=== PATIENT | female | born 1985 | race Caucasian/White ===

== ENCOUNTER 2019-12-13 16:16 | Emergency (ER) | payer OTHER, SELFPAY ==
--- NOTE | ~2019-12-13 | XR_ITS ---
XR ribs LT 2V DATE: 12/13/2019 16:50 INDICATION: Fall down 7 stairs. Posterior left rib pain. TECHNIQUE: 3 views COMPARISON: None FINDINGS: No left rib fracture or bone destruction is evident. Normal heart size. Left lung appears c lear. No pleural effusion or pneumothorax. Surgical clips, right upper quadrant, consistent with cholecystectomy. IMPRESSION: No left rib fracture detected Reviewed, dictated and finalized at location A.
--- NOTE | ~2019-12-13 | XR_ITS ---
XR hip LT min 3V w AP pelvis DATE: 12/13/2019 16:49 INDICATION: Fall down 7 stairs. Posterior left hip pain TECHNIQUE: AP pelvis. AP, lateral and crosstable lateral views of left hip COMPARISON: None FINDINGS: No pelvic fracture or bone destruction. The pubic symphysis and sacroiliac joints are intac t. Hip joint spaces are symmetric and well preserved. No fracture, dislocation, avascular necrosis or bone destruction of the left hip is detected. IMPRESSION: Negative Reviewed, dictated and finalized at location A. IMPRESSION: Negative
[2019-12-13 16:18] VITALS: BP 140/93; PULSE 78; RESP 18; TEMP 36.2; O2SAT 100
--- NOTE | 2019-12-13 16:31 | ED.FALL ---
HPI - Fall General Chief Complaint: Fall <Stephen Selby PA-C - Last Filed: 12/13/19 17:06> Stated Complaint: Fall down 7 steps/left leg pain <Stephen Selby PA-C - Last Filed: 12/13/19 17:06> Time Seen by Provider: 12/13/19 16:18 <SINAN Collins Last Filed: 12/13/19 17:06> Source: patient <SINAN Collins Last Filed: 12/13/19 17:06> Mode of arrival: ambulatory <Stephen Selby PA-C - Last Filed: 12/13/19 17:06> Limitations: no limitations <SINAN Collins Last Filed: 12/13/19 17:06> History of Present Illness HPI Narrative: Patient is a 33-year-old female who presents to emergency department for evaluation of left rib and hip pain status post having slipped on a wet surface and landed on the left side just prior to arrival patient is taken ibuprofen with minimal improvement patient denies radicular symptoms paresthesias head injury loss of consciousness or syncope and presents per private vehicle. Pain is worse with activity and movement <Stephen Selby PA-C - Last Filed: 12/13/19 17:06> Related Data Home Medications: Home Medications Medication Instructions Recorded Confirmed famotidine 20 mg tablet 20 mg PO DAILY 08/12/19 metoclopramide HCl 10 mg tablet 10 mg PO TID PRN tablet 08/12/19 <SINAN Collins Last Filed: 12/13/19 17:06> Allergies/Adverse Reactions: Allergies Allergy/AdvReac Type Severity Reaction Status Date / Time latex Allergy Unknown rash Verified 12/13/19 16:20 <SINAN Collins Last Filed: 12/13/19 17:06> Review of Systems Review of Systems: All systems reviewed & are unremarkable except as noted in HPI and below <SINAN Collins Last Filed: 12/13/19 17:06> PMFSH Past Medical History Medical History: Medical History Adult hypothyroidism Gastro-esophageal reflux disease without esophagitis <SINAN Collins Last Filed: 12/13/19 17:06> Family History Family History: Family History Mother Asthma Family history of thyroid disease Sibling Asthma Grandparent Diabetes mellitus <Stephen Selby PA-C - Last Filed: 12/13/19 17:06> Social History Social History: Social History Smoking status: Former smoker Smoking end date: 08/20/12 Alcohol intake: never Substance use: never Substance use type: does not use Gender identity (if verbalized by the patient): Female <Stephen Selby PA-C - Last Filed: 12/13/19 17:06> Exam Narrative: Exam Narrative: GENERAL: Well-appearing, well-nourished, and in no pain distress. HEAD: Normocephalic, atraumatic. EYES: PERRLA and EOMI. ENT: Nares clear, no rhinorrhea or epistaxis. Mucous membranes moist. NECK: Supple. No adenopathy or masses. CHEST: Clear to auscultation. No respiratory distress. No wheezes rales or rhonchi HEART: Regular rate and rhythm. No murmur heard. Normal peripheral pulses. ABDOMEN: Soft, nontender, nondistended, normal active bowel sounds. EXTREMITIES: Normal range of motion. No edema. Tenderness of the left hip and left lateral ribs with no deformity noted. No midline cervical thoracic or lumbar tenderness SKIN: Warm, dry, no rash. NEURO: No focal deficits. Alert and oriented x3. Cranial nerves II through XII grossly intact. Normal speech and gait PSYCH: Normal mood and affect. <Stephen Selby PA-C - Last Filed: 12/13/19 17:06> Course Course Emergency Course: Patient in the room with of case findings treatment plan and diagnosis resting comfortably in no distress felt appropriate for outpatient reevaluation <Stephen Selby PA-C - Last Filed: 12/13/19 17:06> Vital Signs Vital signs: Vital Signs Temperature 97.1 F L 12/13/19 16:18 Pulse Rate 78 12/13/19 16:18 Respi
== END 2019-12-13 17:13 | disposition home or self-care (01) ==
PROVIDERS: Emergency Provider Emergency Medicine; PCP Family Medicine
DX: R07.81 Pleurodynia (principal); M25.552 Pain in left hip; Z87.891 Personal history of nicotine dependence; E03.9 Hypothyroidism, unspecified; K21.9 Gastro-esophageal reflux disease without esophagitis
CPT/HCPCS: 71100; 73502; 99284; A9270

== ENCOUNTER 2021-04-01 09:10 | Outpatient (CLI) | payer OTHER, SELFPAY ==
[2021-04-01 09:45] LABS: Basophils Percent Auto 0.3 % (0.2-1.2); Eosinophils Absolute Auto 0.1 K/mm3 (0-0.3); Hematocrit 40.6 % (37.0-47.0); Hemoglobin 13.4 g/dL (12.0-15.0); Immature Granulocyte Absolute 0.03 K/mm3 (0.00-0.031); Immature Granulocyte Percent A 0.4 % (0-0.5); Lymphocytes Absolute Auto 1.76 K/mm3 (0.9-3.2); Lymphocytes Percent Auto 24.6 % (18.3-44.2); Mean Corpuscular Hemoglobin 28.7 pg (26-34); Mean Corpuscular Volume 86.9 fl (80-100); Mean Platelet Volume 10.7 fl (7.4-10.4); Monocytes Absolute Auto 0.5 K/mm3 (0.1-0.6); Monocytes Percent Auto 6.4 % (2.6-8.5); Neutrophils Absolute Auto 4.8 K/mm3 (1.3-6.7); Neutrophils Percent Auto 66.3 % (45.5-73.1); Platelet Count Result 231 k/mm3 (150-375); Red Blood Count 4.67 M/mm3 (4.2-5.4); Red Cell Distribution Width 13.2 % (11.5-14.5); White Blood Count 7.2 K/mm3 (4.5-10.0)
[2021-04-01 10:22] LABS: Alanine Aminotransferase 27 U/L (4-35); Albumin Level 4.1 g/dL (3.5-5.1); Alkaline Phosphatase 63 U/L (38-126); Anion Gap 7 mmol/L (8-16); Aspartate Amino Transferase 28 U/L (14-36); Bilirubin,Total 1.1 mg/dL (0.2-1.3); Blood Urea Nitrogen 12 mg/dL (7-17); Carbon Dioxide 24 mmol/L (22-30); Chloride 109 mmol/L (98-107); Cholesterol 177 mg/dL (0-200); Estimated Glomerular Filt Rate 51; Glucose 101 mg/dL (65-110); HDL Direct 39 mg/dL; Potassium 4.2 mmol/L (3.4-5.0); Sodium 140 mmol/L (137-145); Triglycerides 91 mg/dL (<150)
[2021-04-01 10:34] LABS: LDL Cholesterol Direct 99 mg/dL
[2021-04-01 11:35] LABS: Free T4 Free Thyroxine 0.53 ng/mL (0.78-2.19)
== END 2021-04-01 09:11 | disposition home or self-care (01) ==
PROVIDERS: PCP Family Medicine; Visit Provider Physician Assistant
DX: E03.9 Hypothyroidism, unspecified (principal); K21.9 Gastro-esophageal reflux disease without esophagitis; Z13.220 Encounter for screening for lipoid disorders
CPT/HCPCS: 36415; 80053; 80061; 84439; 84443; 85025

== ENCOUNTER 2021-06-02 15:38 | Outpatient (CLI) | payer OTHER, SELFPAY ==
[2021-06-02 16:56] LABS: Total Triiodothyronine (T3) 1.19 NG/ML (0.97-1.69)
[2021-06-02 17:16] LABS: Free T4 Free Thyroxine 0.62 ng/mL (0.78-2.19)
== END 2021-06-02 15:39 | disposition home or self-care (01) ==
LOC: ANHLAB 15:40
PROVIDERS: PCP Family Medicine; Visit Provider Physician Assistant
DX: E03.9 Hypothyroidism, unspecified (principal)
CPT/HCPCS: 36415; 84439; 84443; 84480

== ENCOUNTER 2021-06-02 15:42 | Outpatient (CLI) | payer OTHER, SELFPAY ==
[2021-06-02 17:09] LABS: HIV 1/2 Ab P24 Ag Result Negative (Negative)
[2021-06-02 17:51] LABS: Hepatitis B Surface Anti Res Indeterminate; Hepatitis C Virus Antibody Negative (Negative)
[2021-06-02 22:03] LABS: Hepatitis C Virus Antibody 0.05 S/C
== END 2021-06-02 15:43 | disposition home or self-care (01) ==
LOC: ANHLAB 15:51
PROVIDERS: PCP Family Medicine
DX: T14.8XXA Other injury of unspecified body region, initial encounter (principal)
CPT/HCPCS: 36415; 86703; 86706; 86803; G0432

== ENCOUNTER 2021-06-21 11:29 | Outpatient (CLI) | payer OTHER, SELFPAY ==
--- NOTE | ~2021-06-21 | US_ITS ---
US breast LT limited INDICATION: Patient previously had a palpable mass in the left breast at 12:00. Patient had diagnosti c mammogram and ultrasound 6 weeks ago. Patient is to undergo breast reduction surgery and clinician wanted follow-up examination. TECHNIQUE: Dedicated Limited left breast ultrasound COMPARISON: No prior studies for comparison. FINDINGS: The left breast is composed of normal heterogeneous echotexture without focal solid or cyst ic mass. IMPRESSION: 1: Normal left breast ultrasound. BI-RADS CATEGORY 1 - NEGATIVE Reviewed, dictated and finalized at location A.
== END 2021-06-21 11:30 | disposition home or self-care (01) ==
LOC: ANHIMG 11:31
PROVIDERS: PCP Family Medicine; Visit Provider Physician Assistant
DX: N63.20 Unspecified lump in the left breast, unspecified quadrant (principal)
CPT/HCPCS: 76642

== ENCOUNTER 2022-02-13 06:34 | Outpatient (CLI) | payer OTHER, SELFPAY ==
[2022-02-13 06:51] LABS: Basophils Percent Auto 0.3 % (0.2-1.2); Eosinophils Absolute Auto 0.2 K/mm3 (0-0.3); Eosinophils Percent Auto 2.5 % (0-4.4); Hematocrit 40.7 % (37.0-47.0); Hemoglobin 13.3 g/dL (12.0-15.0); Immature Granulocyte Absolute 0.03 K/mm3 (0.00-0.031); Immature Granulocyte Percent A 0.4 % (0-0.5); Lymphocytes Percent Auto 29.1 % (18.3-44.2); Mean Corpuscular HGB Conc 32.7 g/dl (32-36); Mean Corpuscular Hemoglobin 29.1 pg (26-34); Mean Corpuscular Volume 89.1 fl (80-100); Mean Platelet Volume 10.5 fl (7.4-10.4); Monocytes Absolute Auto 0.5 K/mm3 (0.1-0.6); Monocytes Percent Auto 7.4 % (2.6-8.5); Neutrophils Absolute Auto 4.4 K/mm3 (1.3-6.7); Neutrophils Percent Auto 60.3 % (45.5-73.1); Platelet Count Result 241 k/mm3 (150-375); Red Blood Count 4.57 M/mm3 (4.2-5.4); Red Cell Distribution Width 13.2 % (11.5-14.5); White Blood Count 7.2 K/mm3 (4.5-10.0)
[2022-02-13 07:09] LABS: Alanine Aminotransferase 28 U/L (6-35); Albumin Level 3.9 g/dL (3.5-5.1); Alkaline Phosphatase 59 U/L (38-126); Anion Gap 4 mmol/L (8-16); Aspartate Amino Transferase 24 U/L (14-36); Bilirubin,Total 0.9 mg/dL (0.2-1.3); Blood Urea Nitrogen 11 mg/dL (7-17); Calcium 8.5 mg/dL (8.4-10.2); Carbon Dioxide 28 mmol/L (22-30); Chloride 108 mmol/L (98-107); Cholesterol 175 mg/dL (0-200); Estimated Glomerular Filt Rate 51; Glucose 102 mg/dL (65-110); HDL Direct 34 mg/dL; Potassium 4.5 mmol/L (3.4-5.0); Sodium 140 mmol/L (137-145); Triglycerides 125 mg/dL (<150)
[2022-02-13 07:22] LABS: LDL Cholesterol Direct 102 mg/dL
[2022-02-13 07:43] LABS: Total Triiodothyronine (T3) 1.14 NG/ML (0.97-1.69)
[2022-02-13 07:54] LABS: Free T4 Free Thyroxine 0.53 ng/mL (0.78-2.19)
== END 2022-02-13 06:35 | disposition home or self-care (01) ==
LOC: ANHLAB 06:35
PROVIDERS: PCP Family Medicine; Visit Provider Family Medicine
DX: E03.9 Hypothyroidism, unspecified (principal); G43.909 Migraine, unspecified, not intractable, without status migrainosus; E78.2 Mixed hyperlipidemia
CPT/HCPCS: 36415; 80053; 80061; 84439; 84443; 84480; 85025

== ENCOUNTER 2022-03-18 09:31 | Outpatient (CLI) | payer OTHER, SELFPAY ==
[2022-03-18 11:00] LABS: Free T4 Free Thyroxine 0.85 ng/mL (0.78-2.19)
== END 2022-03-18 09:32 | disposition home or self-care (01) ==
LOC: ANHLAB 09:33
PROVIDERS: PCP Family Medicine; Visit Provider Nurse Practitioner Gerontology
DX: E03.9 Hypothyroidism, unspecified (principal)
CPT/HCPCS: 36415; 84439; 84443; 84480

== ENCOUNTER 2022-04-22 09:16 | Outpatient (CLI) | payer OTHER, SELFPAY | END 2022-04-22 09:17 | disposition home or self-care (01) | LOC: ANHLAB 09:18 | PROVIDERS: PCP Family Medicine; Visit Provider Physician Assistant | DX: E07.9 Disorder of thyroid, unspecified (principal) | CPT/HCPCS: 36415; 84443 ==

== ENCOUNTER 2022-06-23 15:56 | Outpatient (CLI) | payer OTHER, SELFPAY ==
--- NOTE | ~2022-06-23 | XR_ITS ---
EXAMINATION: XR chest 2V 06/23/2022 16:29 INDICATION: Low blood pressure. Dizziness. PROCEDURE: 2 view chest COMPARISON: 12/13/2019 FINDINGS: The lungs are clear. The cardiomediastinal silhouette is within normal limits. There are no pleural effusions. There is no pneumothorax suspected. IMPRESSION: 1: NO ACUTE CARDIOPULMONARY DISEASE. Reviewed, dictated and finalized at location A.
[2022-06-23 16:15] LABS: Basophils Percent Auto 0.2 % (0.2-1.2); Eosinophils Absolute Auto 0.2 K/mm3 (0-0.3); Eosinophils Percent Auto 2.1 % (0-4.4); Hematocrit 40.1 % (37.0-47.0); Hemoglobin 13.4 g/dL (12.0-15.0); Immature Granulocyte Absolute 0.02 K/mm3 (0.00-0.031); Immature Granulocyte Percent A 0.2 % (0-0.5); Lymphocytes Percent Auto 23.6 % (18.3-44.2); Mean Corpuscular HGB Conc 33.4 g/dl (32-36); Mean Corpuscular Hemoglobin 28.5 pg (26-34); Mean Corpuscular Volume 85.3 fl (80-100); Mean Platelet Volume 10.1 fl (7.4-10.4); Monocytes Absolute Auto 0.5 K/mm3 (0.1-0.6); Monocytes Percent Auto 5.4 % (2.6-8.5); Neutrophils Absolute Auto 6.1 K/mm3 (1.3-6.7); Neutrophils Percent Auto 68.5 % (45.5-73.1); Platelet Count Result 275 k/mm3 (150-375); Red Cell Distribution Width 13.2 % (11.5-14.5); White Blood Count 8.9 K/mm3 (4.5-10.0)
[2022-06-23 16:27] LABS: Alanine Aminotransferase 25 U/L (6-35); Albumin Level 4.2 g/dL (3.5-5.1); Alkaline Phosphatase 70 U/L (38-126); Anion Gap 10 mmol/L (8-16); Aspartate Amino Transferase 26 U/L (14-36); Bilirubin,Total 0.8 mg/dL (0.2-1.3); Blood Urea Nitrogen 8 mg/dL (7-17); Calcium 8.8 mg/dL (8.4-10.2); Carbon Dioxide 23 mmol/L (22-30); Chloride 107 mmol/L (98-107); Estimated Glomerular Filt Rate 56; Glucose 120 mg/dL (65-110); Potassium 4.1 mmol/L (3.4-5.0); Sodium 140 mmol/L (137-145)
[2022-06-23 16:56] LABS: Total Triiodothyronine (T3) 1.45 NG/ML (0.97-1.69)
[2022-06-23 17:27] LABS: Free T4 Free Thyroxine 0.73 ng/mL (0.78-2.19)
== END 2022-06-23 15:57 | disposition home or self-care (01) ==
PROVIDERS: PCP Family Medicine; Visit Provider Nurse Practitioner Gerontology
DX: E03.9 Hypothyroidism, unspecified (principal); I95.9 Hypotension, unspecified; R53.83 Other fatigue; R60.9 Edema, unspecified
CPT/HCPCS: 36415; 71046; 80053; 84439; 84443; 84480; 85025

== ENCOUNTER 2022-06-28 14:32 | Outpatient (CLI) | payer OTHER, SELFPAY ==
--- NOTE | ~2022-06-28 | US_ITS ---
EXAMINATION: US thyroid DATE: 06/28/2022 15:11 INDICATION: Nontoxic goiter, unspecified. TECHNIQUE: Multiple ultrasound images of the thyroid were obtained. COMPARISON: None. FINDINGS: The right thyroid lobe measures 3.5 x 2.1 x 1.7 cm. The left thyroid lobe measures 3.3 x 1.4 x 1.7 c m. The thyroid is diffusely heterogeneous and hypoechoic. No discrete nodule. Vascularity is normal. IMPRESSION: 1. Heterogeneous thyroid, likely chronic lymphocytic (Rogerio) thyroiditis. Reviewed, dictated and finalized at location A. G[employer] TALENT MANAGEMENT
== END 2022-06-28 14:33 | disposition home or self-care (01) ==
LOC: ANHIMG 14:33
PROVIDERS: PCP Family Medicine; Visit Provider Nurse Practitioner Gerontology
DX: E04.9 Nontoxic goiter, unspecified (principal)
CPT/HCPCS: 76536

== ENCOUNTER 2022-08-03 18:23 | Emergency (ER) | payer OTHER, SELFPAY ==
[2022-08-03 18:46] VITALS: BP 115/58; PULSE 74; RESP 18; TEMP 36.8; O2SAT 100
--- NOTE | 2022-08-03 19:36 | ED.GENADULT ---
HPI - General Adult General Chief complaint: Ear Stated complaint: Left Ear Pain Time Seen by Provider: 08/03/22 19:35 Source: patient, family, RN notes reviewed and old records reviewed Mode of arrival: ambulatory Limitations: no limitations History of Present Illness HPI narrative: 36-year-old female presents to [facility] with 2 day history left ear pain been taking some Tylenol and Ibuprofen for her discomfort.patient states she also has headache today. patient denies any sore throat, cough, nasal congestion or drainage or any body aches or fevers. Patient has not had COVID vaccinations or flu shot. MD complaint: left ear pain Onset (ago): day(s) (2) Severity scale (1-10): 9 Treatments prior to arrival: NSAID and other (Tylenol) Related Data Home Medications Medication Instructions Recorded Confirmed pantoprazole 40 mg tablet,delayed 40 mg PO QAM 03/17/21 08/03/22 release Allergies Allergy/AdvReac Type Severity Reaction Status Date / Time latex Allergy Unknown rash Verified 08/03/22 18:32 Review of Systems Review of Systems: CONSTITUTIONAL: Denies malaise, chills, sweats, or fever. EYES: Denies visual changes, redness, or discharge. ENT: denies rhinorrhea, congestion, sinus pain,positive for left otalgia,denies sore throat. CARDIOVASCULAR: Denies chest pain, palpitations, or edema. RESPIRATORY:No reported cough.? Denies dyspnea. GASTROINTESTINAL: Denies abdominal pain, nausea, vomiting, diarrhea SKIN: Denies rash or itching. MUSCULOSKELETAL: Denies myalgia. NEUROLOGIC positive for headache. All systems reviewed & are unremarkable except as noted in HPI and below PMFSH Past Medical History Medical History Adult hypothyroidism Gastro-esophageal reflux disease without esophagitis Migraines Surgical History Surgical History History of cholecystectomy Family History Family History Mother Asthma Family history of thyroid disease Depression Thyroid disorder Sibling Asthma Grandparent Diabetes mellitus Other Asthma Grandparent Diabetes mellitus Heart disease Social History Social History Social History: Smoking packs per day: 0.5 Smoking cigarettes per day: 10.0 Years smoked: 8 Smoking pack-years: 4.00 Smoking status: Former smoker Tobacco type: cigarettes Second hand tobacco smoke exposure: No Smoking end date: 08/20/12 Alcohol intake: never Substance use: never Substance use type: does not use Gender identity (if verbalized by the patient): Female Sexual Orientation (if Verbalized by the Patient): Straight or Heterosexual Comments At time of signature, agree with nursing past medical, surgical, social and family history. There is no relevant family history pertinent to the presenting complaint Exam Narrative: GENERAL: Well-appearing, well-nourished, and in no acute distress. HEAD: Normocephalic EYES: PERRLA, conjunctivae clear ENT: Nares clear, turbinates edematous and erythematous, clear discharge. Mucous membranes moist. left TM red and bulging, right TM pearly kelly with dull light reflex bilaterally; no tragal tenderness. Oropharynx erythematous without lesions. Tonsils not enlarged and without exudate, no drooling, no hoarseness, no trismus, uvula midline. NECK: Supple. No lymphadenopathy CHEST: Clear to auscultation, breath sounds equal. No wheezing, rhonchi, rales, or stridor. No respiratory distress, speaks in full sentences.no cough, SAO2 100% on room air HEART: Regular rate and rhythm. No murmur heard. SKIN: Warm, dry, no rash. NEURO: Alert and oriented x3. PSYCH: Normal mood and affect Course Course Emergency Course: Patient is aware of diagnosis, understands and agrees to t
== END 2022-08-03 19:50 | disposition home or self-care (01) ==
PROVIDERS: Emergency Provider Registered Nurse; PCP Family Medicine
DX: H66.92 Otitis media, unspecified, left ear (principal); Z87.891 Personal history of nicotine dependence; E06.9 Thyroiditis, unspecified; K21.9 Gastro-esophageal reflux disease without esophagitis
CPT/HCPCS: 99213; G0463

== ENCOUNTER 2022-08-27 08:57 | Outpatient (CLI) | payer OTHER, SELFPAY ==
--- NOTE | ~2022-08-27 | XR_ITS ---
EXAMINATION: XR chest 2V 08/27/2022 09:24 INDICATION: Foreign body in respiratory tract. PROCEDURE: 2 view chest COMPARISON: No prior studies for comparison. FINDINGS: The lungs are clear. The cardiomediastinal silhouette is within normal limits. There are no pleural effusions. There is no pneumothorax suspected. No radiopaque foreign bodies identified. IMPRESSION: 1: NO ACUTE CARDIOPULMONARY DISEASE. Reviewed, dictated and finalized at location A. DINING ROOM ATTENDANT
== END 2022-08-27 08:58 | disposition home or self-care (01) ==
PROVIDERS: PCP Family Medicine; Visit Provider Nurse Practitioner Gerontology
DX: T17.908A Unspecified foreign body in respiratory tract, part unspecified causing other injury, initial encounter (principal)
CPT/HCPCS: 71046

== ENCOUNTER 2022-09-08 16:29 | Outpatient (CLI) | payer OTHER, SELFPAY ==
[2022-09-08 17:31] LABS: Free T4 Free Thyroxine 1.06 ng/mL (0.78-2.19)
== END 2022-09-08 16:30 | disposition home or self-care (01) ==
PROVIDERS: PCP Family Medicine; Visit Provider Family Medicine
DX: E04.9 Nontoxic goiter, unspecified (principal); E03.9 Hypothyroidism, unspecified
CPT/HCPCS: 36415; 84439; 84443

== ENCOUNTER 2022-09-15 13:43 | Outpatient (CLI) | payer OTHER, SELFPAY ==
--- NOTE | ~2022-09-15 | MMUS_ITS ---
EXAMINATION: MM diagnostic igor BI w yanet, US breast LT limited HISTORY: Palpable left breast abnormality TECHNIQUE: Additional 3-D tomosynthesis images of the breasts were performed and synthetic 2-D images were generated. CAD analysis was submitted and interpreted. High resolution Limited left breast ultr asound was performed. COMPARISON: None BREAST PARENCHYMAL COMPOSITION: Breast composed of scattered areas of fibroglandular density FINDINGS: MAMMOGRAPHIC FINDINGS: There are no suspicious masses, calcifications or architectural distortion in either breast to sugges t malignancy. ULTRASOUND: Limited left breast ultrasound: Normal heterogeneous echotexture without focal solid or cystic mass. IMPRESSION: 1. No evidence for malignancy in either breast. 2. Routine yearly screening mammogram and regular clinical breast examination are recommended. BI-RADS Category 1: Negative Reviewed, dictated and finalized at location A. [employer] SPECIALIST IMPRESSION: 1. No evidence for malignancy in either breast. 2. Routine yearly screening mammogram and regular clinical breast examination a re recommended. BI-RADS Category 1: Negative
== END 2022-09-15 13:44 | disposition home or self-care (01) ==
LOC: ANHIMG 13:46
PROVIDERS: PCP Family Medicine; Visit Provider Nurse Practitioner Gerontology
DX: R92.8 Other abnormal and inconclusive findings on diagnostic imaging of breast (principal)
CPT/HCPCS: 76642; 77062; 77066; G0279

== ENCOUNTER 2022-11-11 13:24 | Outpatient (CLI) | payer OTHER, SELFPAY ==
[2022-11-11 14:35] LABS: Hepatitis B Surface Antigen Negative (Negative)
[2022-11-11 14:43] LABS: HIV 1/2 Ab P24 Ag Result Negative (Negative)
[2022-11-11 14:52] LABS: Hepatitis C Virus Antibody Negative (Negative)
== END 2022-11-11 13:25 | disposition home or self-care (01) ==
LOC: ANHLAB 13:28
PROVIDERS: PCP Family Medicine; Visit Provider Family Medicine
DX: Z00.00 Encounter for general adult medical examination without abnormal findings (principal)
CPT/HCPCS: 36415; 86703; 86803; 87340; G0432

== ENCOUNTER 2023-01-26 14:06 | Outpatient (CLI) | payer OTHER, SELFPAY ==
[2023-01-26 15:08] LABS: Basophils Percent Auto 0.5 % (0.2-1.2); Eosinophils Absolute Auto 0.2 K/mm3 (0-0.3); Eosinophils Percent Auto 2.4 % (0-4.4); Hematocrit 41.4 % (37.0-47.0); Hemoglobin 13.8 g/dL (12.0-15.0); Immature Granulocyte Absolute 0.03 K/mm3 (0.00-0.031); Immature Granulocyte Percent A 0.4 % (0-0.5); Lymphocytes Absolute Auto 1.92 K/mm3 (0.9-3.2); Lymphocytes Percent Auto 24.6 % (18.3-44.2); Mean Corpuscular HGB Conc 33.3 g/dl (32-36); Mean Corpuscular Hemoglobin 28.4 pg (26-34); Mean Corpuscular Volume 85.2 fl (80-100); Mean Platelet Volume 10.9 fl (7.4-10.4); Monocytes Absolute Auto 0.5 K/mm3 (0.1-0.6); Monocytes Percent Auto 6.3 % (2.6-8.5); Neutrophils Absolute Auto 5.1 K/mm3 (1.3-6.7); Neutrophils Percent Auto 65.8 % (45.5-73.1); Platelet Count Result 263 k/mm3 (150-375); Red Blood Count 4.86 M/mm3 (4.2-5.4); Red Cell Distribution Width 13.4 % (11.5-14.5); White Blood Count 7.8 K/mm3 (4.5-10.0)
[2023-01-26 15:16] LABS: Alanine Aminotransferase 38 U/L (6-35); Albumin Level 4.2 g/dL (3.5-5.1); Alkaline Phosphatase 70 U/L (38-126); Anion Gap 6 mmol/L (8-16); Aspartate Amino Transferase 31 U/L (14-36); Bilirubin,Total 1.7 mg/dL (0.2-1.3); Blood Urea Nitrogen 11 mg/dL (7-17); Calcium 8.6 mg/dL (8.4-10.2); Carbon Dioxide 26 mmol/L (22-30); Chloride 106 mmol/L (98-107); Estimated Glomerular Filt Rate > 60; Glucose 100 mg/dL (65-110); Potassium 3.7 mmol/L (3.4-5.0); Sodium 138 mmol/L (137-145)
[2023-01-26 15:48] LABS: Total Triiodothyronine (T3) 1.18 NG/ML (0.97-1.69)
[2023-01-26 16:20] LABS: Free T4 Free Thyroxine 0.87 ng/mL (0.78-2.19)
[2023-01-26 16:49] LABS: Hemoglobin A1C 4.9 % (<5.7)
[2023-01-31 15:37] LABS: Vitamin D 1,25 (OH)2 Total 38 pg/mL (18-72); Vitamin D2 1,25 (OH)2 <8 pg/mL; Vitamin D3 1,25 (OH)2 38 pg/mL
[2023-02-01 05:15] LABS: Thyroid Peroxidase Antibodies 553 IU/mL (<9)
== END 2023-01-26 14:07 | disposition home or self-care (01) ==
LOC: ANHLAB 14:07
PROVIDERS: PCP Family Medicine; Visit Provider Nurse Practitioner Gerontology
DX: E55.9 Vitamin D deficiency, unspecified (principal); E03.9 Hypothyroidism, unspecified
CPT/HCPCS: 36415; 80053; 82607; 82652; 83036; 84439; 84443; 84480; 85025; 86376

== ENCOUNTER 2023-02-02 10:32 | Outpatient (CLI) | payer OTHER, SELFPAY ==
[2023-02-02 11:01] LABS: Cholesterol 148 mg/dL (0-200); HDL Direct 46 mg/dL; Triglycerides 107 mg/dL (<150)
[2023-02-02 11:13] LABS: LDL Cholesterol Direct 86 mg/dL
== END 2023-02-02 10:33 | disposition home or self-care (01) ==
LOC: ANHLAB 10:34
PROVIDERS: PCP Family Medicine; Visit Provider Nurse Practitioner Gerontology
DX: Z13.220 Encounter for screening for lipoid disorders (principal)
CPT/HCPCS: 36415; 80061

== ENCOUNTER 2023-03-23 10:04 | Outpatient (CLI) | payer OTHER, SELFPAY ==
[2023-03-23 11:14] LABS: Alanine Aminotransferase 41 U/L (6-35); Albumin Level 4.2 g/dL (3.5-5.1); Alkaline Phosphatase 76 U/L (38-126); Anion Gap 7 mmol/L (8-16); Aspartate Amino Transferase 40 U/L (14-36); Bilirubin,Total 1.1 mg/dL (0.2-1.3); Blood Urea Nitrogen 11 mg/dL (7-17); Calcium 9.2 mg/dL (8.4-10.2); Carbon Dioxide 27 mmol/L (22-30); Chloride 103 mmol/L (98-107); Estimated Glomerular Filt Rate > 60; Glucose 98 mg/dL (65-110); Potassium 4.3 mmol/L (3.4-5.0); Sodium 137 mmol/L (137-145)
== END 2023-03-23 10:05 | disposition home or self-care (01) ==
PROVIDERS: PCP Family Medicine; Referring Provider Nurse Practitioner Gerontology; Visit Provider Internal Medicine
DX: E03.9 Hypothyroidism, unspecified (principal); R74.8 Abnormal levels of other serum enzymes; E04.9 Nontoxic goiter, unspecified
CPT/HCPCS: 36415; 80053; 84443

== ENCOUNTER 2023-04-13 15:26 | Outpatient (CLI) | payer OTHER, SELFPAY ==
--- NOTE | ~2023-04-13 | CT_ITS ---
EXAMINATION: CT abdomen pelvis w con DATE: 04/13/2023 15:56 INDICATION: Right lower quadrant abdominal pain. TECHNIQUE: Computed tomography (CT) of the abdomen and pelvis was performed with 100 mL Omnipaque-350 intravenous contrast. Automated exposure control and iterative reconstruction technique were employe d. The dose-length product was 1478.13 mGy-cm. COMPARISON: None FINDINGS: Mild dependent atelectasis in the left lower lobe. Heart size is normal. No pericardial or pleural ef fusion. Cholecystectomy clips the gallbladder fossa. There are several scattered <6 mm low-attenuatio n likely hepatic cysts scattered throughout the liver. Spleen, pancreas, bilateral adrenal glands and left kidney are normal. 2 mm nonobstructing stone at a lower pole calyx of the right kidney. There i s inflammatory stranding and bowel wall thickening centered at a diverticulum at the proximal sigmoid colon consistent with diverticulitis. There are few additional scattered diverticula without adjacen t inflammatory stranding. Small bowel and appendix are normal. 1.7 cm peripherally enhancing right ov sherri corpus luteum cyst. Bladder, anteverted uterus and left adnexa are unremarkable. No abscess or free intraperitoneal gas or fluid. No pathologically enlarged abdominal or pelvic lymphadenopathy. Angel iesha are unremarkable. IMPRESSION: 1. Radiographic uncomplicated sigmoid diverticulitis. 2. 1.7 cm right ovarian corpus luteum cyst. 3. 2 mm nonobstructing right renal stone. Reviewed, dictated and finalized at location A.
== END 2023-04-13 15:27 | disposition home or self-care (01) ==
PROVIDERS: PCP Family Medicine; Visit Provider Physician Assistant
DX: R10.31 Right lower quadrant pain (principal); R10.829 Rebound abdominal tenderness, unspecified site; N20.0 Calculus of kidney; N83.201 Unspecified ovarian cyst, right side; K57.32 Diverticulitis of large intestine without perforation or abscess without bleeding
CPT/HCPCS: 74177; Q9967

== ENCOUNTER 2023-06-14 09:11 | Outpatient (CLI) | payer OTHER, SELFPAY ==
[2023-06-29 13:54] VITALS: BMI 46.4
--- NOTE | 2023-06-29 13:54 | WPDHOMESLEEP ---
Sleep Study - Home Unattended Date of Study: 06/14/23 Ordering Provider: Tomas Rousseau APRN Interpreting Provider: Tatyana Proctor MD Home Sleep Study Type: Watch PAT Height: 1.6 m Weight: 118.841 kg Body Mass Index: 46.4 Neck Circumference (inches): 16.5 [place]: 16 Reason for Sleep Study Snoring, daytime hypersomnolence Sleep History Tremayne Barton is a 37-year-old female with history of anxiety, migraines, GERD, hypothyroidism who underwent a home sleep test for evaluation of snoring and daytime hypersomnia. She never awakens from sleep short of breath. She frequently awakens at night with heartburn, belching or cough. She frequently snores and frequently snores loudly enough that others complain. She occasionally has trouble sleeping when she has a cold. She rarely suddenly wakes up gasping for breath during the night. She rarely has breathing problems at night. She occasionally sweats excessively at night. She never notices her heart pounding or beating irregularly during the night. She occasionally falls asleep during the day. She never falls asleep while driving. She rarely experiences loss of muscle tone with strong emotion. She occasionally has trouble at work because of sleepiness. She never feels paralyzed on waking or falling asleep. She rarely experiences vivid dreams upon waking or falling asleep. She does not feel afraid of going to sleep. She occasionally has nightmares. She occasionally recalls her dreams. She occasionally has thoughts racing through her mind. She rarely feels sad or depressed. She occasionally feels anxiety or worry about things. She frequently has muscular tension. She frequently notices parts of her body jerk. She frequently kicks during the night. She frequently feels crawling or aching feelings in her legs. She occasionally feels leg pain at night. She occasionally grinds her teeth during sleep and occasionally has morning jaw pain. She rarely feels bothered by pain during the day and is never awakened by pain during the night. She occasionally wakes up feeling stiff, sore, and achy in the morning. She occasionally wakes with pain in her neck, spine, or joints. Normal bedtime is around 9pm on the weekdays and 10 to 11pm on the weekends, taking 5 to 10 minutes to fall asleep. She typically gets about 7 to 8 hours of sleep per night. Her wake up time is around 5:30am on the weekdays and 7 to 8am on the weekends. She typically wakes up around 1 to 2 times per night, awake 5 to 10 minutes and she will toss and turn, check the time. Habits: Former tobacco smoker. Reports no caffeine use. No alcohol or recreational substances. [facility] Past Medical History Medical History Adult hypothyroidism Allergic reaction to tattoo ink Aspiration into airway Depression with anxiety Gastro-esophageal reflux disease without esophagitis Hypothyroidism (acquired) Migraines Screening for hyperlipidemia Surgical History Surgical History History of cholecystectomy Family History Family History Mother Asthma Family history of thyroid disease Depression Thyroid disorder Sibling Asthma Grandparent Diabetes mellitus Other Asthma Grandparent Diabetes mellitus Heart disease Social History Social History Social History: Smoking packs per day: 0.5 Smoking cigarettes per day: 10.0 Years smoked: 8 Smoking pack-years: 4.00 Smoking status: Former smoker Tobacco type: cigarettes Second hand tobacco smoke exposure: No Smoking end date: 08/20/12 Alcohol intake: never Substance use: never Substance use type: does not use Lack of Transportation: No Lack of Food: Never True Current Housing: I Have Housing Concerned About Future Housing: No Difficulty Paying Ga
== END 2023-06-18 10:02 | disposition home or self-care (01) ==
LOC: ANHCSM 09:11
PROVIDERS: PCP Family Medicine; Visit Provider Nurse Practitioner Family
DX: G47.10 Hypersomnia, unspecified (principal); G47.33 Obstructive sleep apnea (adult) (pediatric); G25.81 Restless legs syndrome
CPT/HCPCS: 95800

== ENCOUNTER 2023-07-21 09:26 | Outpatient (CLI) | payer OTHER, SELFPAY ==
[2023-07-21 09:45] LABS: Alanine Aminotransferase 45 U/L (6-35); Albumin Level 4.2 g/dL (3.5-5.1); Alkaline Phosphatase 69 U/L (38-126); Anion Gap 8 mmol/L (8-16); Aspartate Amino Transferase 35 U/L (14-36); Bilirubin,Total 1.3 mg/dL (0.2-1.3); Blood Urea Nitrogen 13 mg/dL (7-17); Calcium 8.8 mg/dL (8.4-10.2); Carbon Dioxide 23 mmol/L (22-30); Chloride 108 mmol/L (98-107); Estimated Glomerular Filt Rate > 60; Glucose 103 mg/dL (65-110); Potassium 4.4 mmol/L (3.4-5.0); Sodium 139 mmol/L (137-145)
[2023-07-21 10:16] LABS: Thyroid Stimulating Hormone 0.621 uIU/mL (0.465-4.680)
[2023-07-21 10:22] LABS: Free T4 Free Thyroxine 1.51 ng/mL (0.78-2.19)
== END 2023-07-21 09:27 | disposition home or self-care (01) ==
LOC: ANHLAB 09:27
PROVIDERS: PCP Family Medicine; Referring Provider Physician Assistant; Visit Provider Internal Medicine
DX: R74.8 Abnormal levels of other serum enzymes (principal); E03.9 Hypothyroidism, unspecified
CPT/HCPCS: 36415; 80053; 84439; 84443

== ENCOUNTER 2023-07-26 07:15 | Outpatient (CLI) | payer OTHER, SELFPAY ==
[2023-07-26 09:12] LABS: Hepatitis B Surface Antigen Negative (Negative)
[2023-07-26 09:17] LABS: HAV RESULT Negative (Negative); Hepatitis B Core IgM Result Negative (Negative)
[2023-07-26 09:29] LABS: Hepatitis C Virus Antibody Negative (Negative)
== END 2023-07-26 07:16 | disposition home or self-care (01) ==
LOC: ANHLAB 07:16
PROVIDERS: PCP Family Medicine; Visit Provider Physician Assistant
DX: R74.8 Abnormal levels of other serum enzymes (principal)
CPT/HCPCS: 36415; 80074

== ENCOUNTER 2023-11-29 11:07 | Outpatient (CLI) | payer OTHER, SELFPAY ==
[2023-11-29 11:58] LABS: Basophils Percent Auto 0.3 % (0.2-1.2); Eosinophils Absolute Auto 0.3 K/mm3 (0-0.3); Eosinophils Percent Auto 2.6 % (0-4.4); Hemoglobin 13.7 g/dL (12.0-15.0); Immature Granulocyte Absolute 0.02 K/mm3 (0.00-0.031); Immature Granulocyte Percent A 0.2 % (0-0.5); Lymphocytes Absolute Auto 1.99 K/mm3 (0.9-3.2); Mean Corpuscular HGB Conc 31.9 g/dl (32-36); Mean Corpuscular Hemoglobin 28.1 pg (26-34); Mean Corpuscular Volume 88.3 fl (80-100); Mean Platelet Volume 11.1 fl (7.4-10.4); Monocytes Absolute Auto 0.5 K/mm3 (0.1-0.6); Monocytes Percent Auto 4.9 % (2.6-8.5); Neutrophils Absolute Auto 6.7 K/mm3 (1.3-6.7); Platelet Count Result 237 k/mm3 (150-375); Red Blood Count 4.87 M/mm3 (4.2-5.4); Red Cell Distribution Width 13.7 % (11.5-14.5); White Blood Count 9.5 K/mm3 (4.5-10.0)
[2023-11-29 12:49] LABS: Hepatitis B Surface Antigen Negative (Negative); Rubella IgG Antibody 16.6 IU/ML
[2023-11-29 12:51] LABS: HIV 1/2 Ab P24 Ag Result Negative (Negative)
[2023-11-30 12:24] LABS: Rapid Plasma Reagin Non-Reactive (NonReactive)
[2023-12-05 14:49] LABS: CMV IgG Antibody <0.60 U/mL
[2023-12-15 11:14] LABS: SMA 2.0 RISK VARIANT NOT DETECTED
[2023-12-17 14:08] LABS: CF Result NEGATIVE (NEGATIVE)
[2023-12-18 13:49] LABS: SMA Results Received Yes
== END 2023-11-29 11:08 | disposition home or self-care (01) ==
LOC: ANHLAB 11:10
PROVIDERS: PCP Family Medicine; Referring Provider Family Medicine; Visit Provider Student in an Organized Health Care Education/Training Program
DX: N92.6 Irregular menstruation, unspecified (principal); E03.9 Hypothyroidism, unspecified; N94.89 Other specified conditions associated with female genital organs and menstrual cycle
CPT/HCPCS: 36415; 81220; 81329; 84443; 84702; 85025; 86592; 86644; 86703; 86747; 86762; 86787; 86850; 86900; 86901; 87077; 87086; 87088; 87340; G0432

== ENCOUNTER 2023-12-03 07:47 | Outpatient (CLI) | payer OTHER, SELFPAY ==
--- NOTE | ~2023-12-03 | US_ITS ---
EXAMINATION: US OB <=14 wk fetus w TV DATE: 12/03/2023 08:27 INDICATION: Amenorrhea TECHNIQUE: Real-time transabdominal and transvaginal obstetric ultrasound. FINDINGS: No prior studies for comparison. The uterus measures 12.2 x 7.5 x 6 cm. There is an intrauterine gestational sac, with pole iden tified. There is a subchorionic hemorrhage measuring 1.8 x 1.3 x 1.1 cm The crown rump length measure s 1.74 cm, which correlates with a estimated gestational age of 8 weeks 1 day. heart tones ar e identified measuring 169 bpm. There is a small corpus luteal cyst of the right ovary measuring 1.9 cm. IMPRESSION: 1. SL IUP with an EGA of 8 weeks, 1 days (EDC by current ultrasound of 07/13/2024). 2: Subchorionic hemorrhage measuring 1.8 x 1.3 x 1.1 cm. Reviewed, dictated and finalized at location A. IMPRESSION: 1. SL IUP with an EGA of 8 weeks, 1 days (EDC by current ultrasound of 07/13/20). 2: Subchorionic hemorrhage measuring 1.8 x 1.3 x 1.1 cm.
== END 2023-12-03 07:48 ==
PROVIDERS: PCP Family Medicine; Visit Provider Student in an Organized Health Care Education/Training Program
DX: N91.2 Amenorrhea, unspecified (principal); Z3A.08 8 weeks gestation of pregnancy
CPT/HCPCS: 76801; 76817

== ENCOUNTER 2024-01-19 12:12 | Outpatient (CLI) | payer OTHER, SELFPAY ==
[2024-01-19 13:41] LABS: Free T4 Free Thyroxine 0.65 ng/mL (0.78-2.19)
== END 2024-01-19 12:13 | disposition home or self-care (01) ==
LOC: ANHLAB 12:13
PROVIDERS: PCP Family Medicine; Visit Provider Obstetrics & Gynecology
DX: Z34.90 Encounter for supervision of normal pregnancy, unspecified, unspecified trimester (principal); E03.9 Hypothyroidism, unspecified
CPT/HCPCS: 36415; 84439; 84443; 87086

== ENCOUNTER 2024-04-11 08:58 | Outpatient (CLI) | payer OTHER, SELFPAY ==
[2024-04-11 10:32] LABS: Hematocrit 34.9 % (37.0-47.0); Hemoglobin 11.7 g/dL (12.0-15.0); Mean Corpuscular HGB Conc 33.5 g/dl (32-36); Mean Corpuscular Hemoglobin 28.5 pg (26-34); Mean Corpuscular Volume 85.1 fl (80-100); Mean Platelet Volume 10.7 fl (7.4-10.4); Platelet Count Result 246 k/mm3 (150-375); Red Cell Distribution Width 14.6 % (11.5-14.5); White Blood Count 9.7 K/mm3 (4.5-10.0)
[2024-04-11 10:41] LABS: Glucose 1 Hour PP 50gm Dose 160 mg/dL
[2024-04-11 11:18] LABS: HIV 1/2 Ab P24 Ag Result Negative (Negative)
[2024-04-11 23:11] LABS: Rapid Plasma Reagin Non-Reactive (NonReactive)
== END 2024-04-11 08:59 | disposition home or self-care (01) ==
LOC: ANHLAB 09:00
PROVIDERS: PCP Family Medicine; Visit Provider Obstetrics & Gynecology
DX: Z34.90 Encounter for supervision of normal pregnancy, unspecified, unspecified trimester (principal); R30.0 Dysuria
CPT/HCPCS: 36415; 82947; 85027; 86592; 86703; 87081; 87086; 87088; G0432

== ENCOUNTER 2024-04-24 14:15 | Outpatient (CLI) | payer OTHER, SELFPAY ==
--- NOTE | ~2024-04-24 | US_ITS ---
EXAMINATION: US OB follow up DATE: 04/24/2024 14:39 INDICATION: Encounter for supervision of normal during third trimester TECHNIQUE: Real-time ultrasound of the pelvis was performed. The interpreting radiologist was not pre sent for the study. COMPARISON: 12/03/2023 FINDINGS: There is a single living fetus in breech presentation. The placenta is anterior and not low-lying wi th caudal margin 9.3 cm from the internal cervical os. heart rate is 141 beats per minute (bpm) . The amniotic fluid index is 12.7 cm, which is normal (5th%-95%: 9.2-23.1 cm at 28 weeks estimated gestational age). The cervix is not clearly visualized on the provided images. The following biometric data were obtained: BPD: 7.3 cm -> 29 weeks 1 days Head circumference: 27.3 cm -> 29 weeks 5 days Abdominal circumference: 26.3 cm -> 30 weeks 3 days Femur length: 5.5 cm -> 28 weeks 6 days These measurements are concordant. Head circumference to abdominal circumference ratio: 1.04 (normal range 0.98-1.20). Estimated weight: 1450 g (+/-) 217 g or 3 lbs. 3 oz. (+/-) 8 oz. IMPRESSION: 1. Single living fetus in breech presentation with heart rate of 141 bpm. 2. Normal amniotic fluid index of 12.7 cm. 3. Estimated weight is 81st percentile by Hadlock criteria when 07/13/2024 is used as the estim ated date of delivery (SORIN). Please correlate with clinical information or earlier ultrasounds for mo st accurate SORIN. Reviewed, dictated and finalized at location A. IMPRESSION: 1. Single living fetus in breech presentation with heart rate of 141 bpm. 2. Normal amniotic fluid index of 12.7 cm. 3. Estimated weight is 81st percentile by Hadlock criteria when 4 is used as the estimated date of delivery (SORIN). Please correlate with clinic al information or earlier ultrasounds for most accurate SORIN.
== END 2024-04-24 14:16 | disposition home or self-care (01) ==
PROVIDERS: PCP Family Medicine; Visit Provider Obstetrics & Gynecology
DX: Z34.90 Encounter for supervision of normal pregnancy, unspecified, unspecified trimester (principal); Z3A.00 Weeks of gestation of pregnancy not specified
CPT/HCPCS: 76816

== ENCOUNTER 2024-05-10 07:45 | Outpatient (CLI) | payer OTHER, SELFPAY ==
[2024-05-10 08:09] LABS: Glucose Fasting Gestational 105 mg/dL (>/=95)
[2024-05-10 09:55] LABS: Glucose 1 Hour Gest 175 mg/dL (>/=180)
[2024-05-10 11:09] LABS: Glucose 2 Hour Gest 162 mg/dL (>/= 155)
[2024-05-10 11:41] LABS: Glucose 3 Hour Gest 89 mg/dL (>/=140)
== END 2024-05-10 07:46 | disposition home or self-care (01) ==
LOC: ANHLAB 07:46
PROVIDERS: PCP Family Medicine; Visit Provider Obstetrics & Gynecology
DX: R73.09 Other abnormal glucose (principal)
CPT/HCPCS: 36415; 82951; 82952

== ENCOUNTER 2024-06-06 06:09 | Outpatient (CLI) | payer OTHER, SELFPAY ==
[2024-06-06 06:46] VITALS: BP 127/70; PULSE 72
[2024-06-06 07:01] VITALS: BP 126/72; PULSE 85
[2024-06-06 07:03] VITALS: BP 127/70; PULSE 79
--- NOTE | 2024-06-06 07:03 | PC.NURSE ---
Dr Back notified of negative ROM plus and reactive tracing. OK to [facility].
[2024-06-06 07:13] LABS: OBXCEM ROM Plus Negative (Negative)
== END 2024-06-06 07:05 | disposition home or self-care (01) ==
LOC: ANHOBOP 06:13 → ANHLDR 06:26
PROVIDERS: PCP Family Medicine; Visit Provider Student in an Organized Health Care Education/Training Program
DX: O42.90 Premature rupture of membranes, unspecified as to length of time between rupture and onset of labor, unspecified weeks of gestation (principal); Z3A.00 Weeks of gestation of pregnancy not specified
CPT/HCPCS: 59025; 84112; 99199

== ENCOUNTER 2024-06-10 06:17 | Inpatient (IN) | payer OTHER, SELFPAY ==
[2024-06-10] VITALS (19 sets, daily range): BP systolic 107–137; BP diastolic 54–84; PULSE 68–109; TEMP 36.3–36.8; BMI 48.4
--- NOTE | ~2024-06-10 | US_ITS ---
EXAMINATION: US venous doppler LE RT DATE: 06/13/2024 10:32 INDICATION: Right calf pain. TECHNIQUE: Grayscale ultrasound images without and with compression and Doppler ultrasound images of the right lower extremity veins were obtained. COMPARISON: None. FINDINGS: The visualized portions of right common femoral vein, profunda (deep) femoral vein, femoral vein, pop liteal vein, peroneal veins, posterior tibial veins, and greater saphenous vein outflow are patent. IMPRESSION: 1. No deep venous thrombosis. Reviewed, dictated and finalized at location A.
--- NOTE | 2024-06-10 09:11 | LDADM ---
This patient, Tremayne Braton, was admitted to Labor/Delivery/Recovery 105 on 06/10/24 at 06:17. Plans for labor, pain management and were discussed with patient. Patient/family oriented to hospital policies and general routines including ID bracelet, bed and alarms, visiting hours, pain management, procedures, bathroom and other care routines, personal items, smoking policy, room service/diet and guest tray routines, security routines, and visiting hours. Patient/Family are encouraged to report perceived risks to care and to ask questions if they do not understand what they are told or what they should do. See OBIX for further documentation.
[2024-06-10 09:19] LABS: Glucose Point of Care 86 mg/dl (65-105)
[2024-06-10 09:24] LABS: Basophils Percent Auto 0.2 % (0.2-1.2); Eosinophils Absolute Auto 0.1 K/mm3 (0-0.3); Eosinophils Percent Auto 0.6 % (0-4.4); Hematocrit 33.3 % (37.0-47.0); Hemoglobin 10.5 g/dL (12.0-15.0); Immature Granulocyte Absolute 0.07 K/mm3 (0.00-0.031); Immature Granulocyte Percent A 0.6 % (0-0.5); Lymphocytes Percent Auto 11.9 % (18.3-44.2); Mean Corpuscular HGB Conc 31.5 g/dl (32-36); Mean Corpuscular Hemoglobin 24.6 pg (26-34); Mean Corpuscular Volume 78.2 fl (80-100); Mean Platelet Volume 11.4 fl (7.4-10.4); Monocytes Absolute Auto 0.6 K/mm3 (0.1-0.6); Monocytes Percent Auto 5.1 % (2.6-8.5); Neutrophils Absolute Auto 8.9 K/mm3 (1.3-6.7); Neutrophils Percent Auto 81.6 % (45.5-73.1); Platelet Count Result 260 k/mm3 (150-375); Red Blood Count 4.26 M/mm3 (4.2-5.4); Red Cell Distribution Width 14.5 % (11.5-14.5); White Blood Count 10.9 K/mm3 (4.5-10.0)
[2024-06-10] MEDS: BETAMETHASONE SOD PHOS/ACETATE 30 MG/5 ML VIAL 12 MG IM ×2 (09:27→21:50)
[2024-06-10] MEDS: DINOPROSTONE 10 MG VAG INSERT VAGINAL (09:52)
[2024-06-10 11:04] LABS: Rapid Plasma Reagin Non-Reactive (NonReactive)
[2024-06-10 13:00] LABS: HIV 1/2 Ab P24 Ag Result Negative (Negative)
--- NOTE | 2024-06-10 13:07 | PM.IMHP ---
H&P: HPI History of Present Illness Date/Time: 06/10/24 13:07 Chief Complaint: oligohydramnios intrauterine advanced maternal age gestational diabetes hypothyroidism Narrative: 38-year-old who presents at 35 weeks 4 days for testing in the setting of gestational diabetes. BPP today showed oligohydramnios with an YUDELKA of 2. Rupture of membranes test was negative. Patient has had borderline oligohydramnios for the past 2 testings. Patient's is also complicated by advanced maternal age, diet-controlled gestational diabetes, and hypothyroidism. Review of Systems Cardiovascular: Cardiovascular: Denies chest pain, Denies leg edema, Denies palpitations, Denies dyspnea and Denies dyspnea on exertion Respiratory: Respiratory: Denies cough, Denies dyspnea and Denies dyspnea on exertion Gastrointestinal: Gastrointestinal: Denies abdominal pain, Denies constipation, Denies diarrhea, Denies nausea and Denies vomiting Genitourinary: Genitourinary: Denies hematuria, Denies urinary frequency, Denies dysuria, Denies pelvic pain, Denies urinary incontinence and Denies vaginal discharge Neurologic: Reports system reviewed and no additional complaints, except as documented Psychiatric: Psychiatric: Reports no additional psychiatric complaints Endocrine: Endocrine: Denies palpitations PMF Past Medical History Medical History Abdominal pain in female Abnormal findings on imaging of biliary tract Acute non-recurrent frontal sinusitis Acute non-recurrent maxillary sinusitis Adult hypothyroidism Allergic reaction to tattoo ink Anxiety Aspiration into airway B12 deficiency Chronic cholecystitis Depression with anxiety Gastro-esophageal reflux disease without esophagitis Hypothyroidism (acquired) Hypothyroidism, unspecified Migraines Nausea Palpitations RUQ abdominal pain Screening for hyperlipidemia Suppression of menses Tobacco use Tuberculosis screening Vitamin D deficiency [place] Surgical History Surgical History History of cholecystectomy Family History Family History Mother Asthma Family history of thyroid disease Depression Thyroid disorder Sibling Asthma Grandparent Diabetes mellitus Other Asthma Grandparent Diabetes mellitus Heart disease Social History Social History Social History: Smoking packs per day: 0.5 Smoking cigarettes per day: 10.0 Years smoked: 8 Smoking pack-years: 4.00 Smoking status: Former smoker Tobacco type: cigarettes Second hand tobacco smoke exposure: No Smoking end date: 08/20/12 Alcohol intake: never Substance use: never Substance use type: does not use Do You Feel Safe in your Home?: Yes Lack of Transportation: No Lack of Food: Never True Current Housing: I Have Housing Concerned About Future Housing: No Difficulty Paying Gas/Electric Bills: No Difficulty Paying for Meds: No Currently Unemployed: No Education: Associate Degree Difficulty w/ Childcare or Family Care: No Living arrangements: with family Occupation/Education: occupation Additional occupation/education comments: Dental Hygienist Gender identity (if verbalized by the patient): Female Sexual Orientation (if Verbalized by the Patient): Straight or Heterosexual Spiritual care concerns: No Meds Home Medications and Allergies Home Medications Medication Instructions Recorded Confirmed Type aspirin 81 mg tablet,delayed 81 mg PO DAILY 12/20/23 06/10/24 History release (Adult Low Dose Aspirin) vits no.126-ferrous fum 1 tablet PO QAM 12/20/23 06/10/24 History 28 mg iron-folic acid 800 mcg tablet (Classic ) levothyroxine 175 mcg tablet 175 mcg PO BAKARI
[2024-06-10 14:19] LABS: Glucose Point of Care 153 mg/dl (65-105)
--- NOTE | 2024-06-10 17:46 | WPDANESEPP ---
Anes - Eval Pre Procedure Procedure: labor epidural Date/Time: 06/10/24 17:46 Surgeon: indigo Preop Diagnosis: pain during labor Pre Op Diagnosis: Induction Patient Data Age: 38 Gender: F Height: 1.57 m Weight: 120 kg Last Vital Signs Temp 36.4 C 06/10/24 17:37 Pulse 98 06/10/24 17:38 BP 137/84 06/10/24 17:38 O2 Del Method Room Air 06/10/24 09:09 Allergies Allergy/AdvReac Type Severity Reaction Status Date / Time latex Allergy Unknown rash Verified 06/05/24 14:03 Home Medications Medication Instructions Recorded Confirmed Type aspirin 81 mg tablet,delayed 81 mg PO DAILY 12/20/23 06/10/24 History release (Adult Low Dose Aspirin) vits no.126-ferrous fum 1 tablet PO QAM 12/20/23 06/10/24 History 28 mg iron-folic acid 800 mcg tablet (Classic ) levothyroxine 175 mcg tablet 175 mcg PO DAILY #30 tabs 01/21/24 06/10/24 Rx Laboratory Tests 06/10/24 06/10/24 06/10/24 09:06 09:15 14:15 WBC 10.9 H K/mm3 (4.5-10.0) RBC 4.26 M/mm3 (4.2-5.4) Hgb 10.5 L g/dL (12.0-15.0) Hct 33.3 L % (37.0-47.0) MCV 78.2 L fl (80-100) MCH 24.6 L pg (26-34) MCHC 31.5 L g/dl (32-36) RDW 14.5 % (11.5-14.5) Plt Count 260 k/mm3 (150-375) MPV 11.4 H fl (7.4-10.4) Immature Gran % (Auto) 0.6 H % (0-0.5) Neut % (Auto) 81.6 H % (45.5-73.1) Lymph % (Auto) 11.9 L % (18.3-44.2) [place] % (Auto) 5.1 % (2.6-8.5) Eos % (Auto) 0.6 % (0-4.4) Baso % (Auto) 0.2 % (0.2-1.2) Lymph # (Auto) 1.30 K/mm3 (0.9-3.2) [place] # (Auto) 0.6 K/mm3 (0.1-0.6) Eos # (Auto) 0.1 K/mm3 (0-0.3) Baso # (Auto) 0.0 K/mm3 (0.0-0.1) Abs Immat Gran (auto) 0.07 H K/mm3 (0.00-0.031) Absolute Neuts (auto) 8.9 H K/mm3 (1.3-6.7) Absolute Nucleated RBC 0.000 K/mm3 (0.0-0.012) Nucleated RBC % 0.0 % (0.0-0.2) POC Capillary Glucose 86 mg/dl 153 H mg/dl (65-105) (65-105) RPR Non-reactive (NonReactive) HIV 1&2 Ab/P24 Ag 4thGn Negative (Negative) Blood Type O Positive Antibody Screen Negative Patient hx anesthesia problems: none Family hx anesthesia problems: none Results Review: All pre-operative results and documents have been reviewed as part of the pre-operative evaluation. [facility] Past Medical History Medical History Abdominal pain in female Abnormal findings on imaging of biliary tract Acute non-recurrent frontal sinusitis Acute non-recurrent maxillary sinusitis Adult hypothyroidism Allergic reaction to tattoo ink Anxiety Aspiration into airway B12 deficiency Chronic cholecystitis Depression with anxiety Gastro-esophageal reflux disease without esophagitis Hypothyroidism (acquired) Hypothyroidism, unspecified Migraines Nausea Palpitations RUQ abdominal pain Screening for hyperlipidemia Suppression of menses Tobacco use Tuberculosis screening Vitamin D deficiency [place] Surgical History Surgical History History of cholecystectomy Family History Family History Mother Asthma Family history of thyroid disease Depression Thyroid disorder Sibling Asthma Grandparent Diabetes mellitus Other Asthma Grandparent Diabetes mellitus Heart disease Social History Social History Social History: Smoking packs per day: 0.5 Smoking cigarettes per day: 10.0 Years smoked: 8 Smoking pack-years: 4.00 Smoking status: Former smoker Tobacco type: cigarettes Second hand tobacco smoke exposure: No Smoking end date: 08/20/12 Alcohol intake: n
[2024-06-10 21:11] LABS: Glucose Point of Care 141 mg/dl (65-105)
[2024-06-10] MEDS: LEVOTHYROXINE SODIUM 100 MCG, LEVOTHYROXINE SODIUM 75 MCG 175 MCG PO (21:17)
[2024-06-10] MEDS: guaiFENesin 12 HR 600 MG TABCR PO (21:17)
[2024-06-10] MEDS: BENZONATATE 100 MG CAPSULE PO (21:17)
[2024-06-10] MEDS: miSOPROStol 25 MCG TABLET VAGINAL (23:11)
[2024-06-11] VITALS (146 sets, daily range): BP systolic 63–141; BP diastolic 24–81; PULSE 60–235; RESP 18–20; TEMP 36.6–37.2; O2SAT 96–100
[2024-06-11 00:51] LABS: Glucose Point of Care 114 mg/dl (65-105)
[2024-06-11] MEDS: miSOPROStol 25 MCG TABLET VAGINAL (03:27)
[2024-06-11 05:01] LABS: Glucose Point of Care 116 mg/dl (65-105)
[2024-06-11] MEDS: LACTATED RINGERS 1,000 ML 125 ML IV CONT ×2 (07:57→12:26)
[2024-06-11] MEDS: OXYTOCIN 30 UNITS/NS 500 ML 30 UNITS/500 ML BAG IV CONT (09:29)
[2024-06-11 09:35] LABS: Glucose Point of Care 125 mg/dl (65-105)
[2024-06-11 09:35] LABS: Glucose Point of Care 123 mg/dl (65-105)
[2024-06-11] MEDS: AMPICILLIN 2 GM/NS 100 ML 2 GM/100 ML BAG IVPB (09:38)
[2024-06-11 13:13] LABS: Glucose Point of Care 88 mg/dl (65-105)
--- NOTE | 2024-06-11 13:37 | PM.OBPRVD ---
OB - Vaginal Delivery Note Procedure Delivery date: 06/11/24 Events: Gestational Diabetes and Oligohydramnios Induction method: Per Cervidil Protocol Delivery augmentation: Rupture of Membranes and Pitocin Delivery monitor: External FHT and Internal Uterine Route of delivery: Episiotomy description: None Laceration Description: Perineal - 2nd Degree Delivery repair: vicryl Specimen: Yes (placenta) Quantitative Blood Loss (ml): 250 Anesthesia type: Epidural Disposition: Floor Complications: No immediate complications Narrative: Patient pushed for a spontaneous vaginal delivery. The fetus was delivered atraumatically and placed on the maternal abdomen. The cord was clamped and cut after 1 minute of life. The cord was double clamped and cut and a segment of cord was collected for cord gases. Cord blood was collected for blood type and Coomb's testing. The placenta delivered spontaneously and was noted to be intact. The perineum was inspected and a second degree perineal laceration was noted. The laceration was repaired with 3-0 vicryl in a running fashion. The uterus was firm and good hemostasis was noted. [place] Baby Date of : 06/11/24 Time of : 13:21 Gestational Age by Date: 35 gender: Male Weight (pounds): 6 Weight (ounces): 5 presentation: vertex position: Right Occiput Anterior Placenta delivery description: Spontaneous Cord Vessel Description: 3 Vessels score one minute: 6 score five minutes: 8
[2024-06-11] MEDS: OXYTOCIN 30 UNITS/NS 500 ML 30 UNITS/500 ML BAG 125 UNITS IV CONT (13:54)
--- NOTE | 2024-06-11 16:23 | PC.NURSE ---
Patient transferred to post room #290 via wheelchair. Support person present. Oriented to unit, room, information board, rooming in, admission packet and security measures. Patient verbalizes understanding.
[2024-06-11] MEDS: IBUPROFEN 600 MG TABLET PO ×2 (16:37→22:49)
--- NOTE | 2024-06-11 17:00 | PC.NURSE ---
Breast pump provided due to [ in level 2]. Instructions given on cleaning, care, usage, that there should be no pain, pumping schedule for milk production, collection, and storage of human milk. Patient was assessed for correct placement, flange size (21mm measure, 24mm flange), to pump for comfort and nipple stretching/stimulation for adequate milk production every 3 hours (8 times in 24 hours) 1-2 times at night.?Mother voiced understanding of the education shared along with mom/baby guide for additional resource information. Reported to the Primary RN.
[2024-06-11] MEDS: ACETAMINOPHEN 325 MG TABLET 650 MG PO (18:05)
[2024-06-12] MEDS: IBUPROFEN 600 MG TABLET PO ×3 (04:40→22:20)
[2024-06-12 04:43] VITALS: BP 103/62; PULSE 77; RESP 18; TEMP 36.7; O2SAT 97
[2024-06-12 06:48] LABS: Hematocrit 31.6 % (37.0-47.0)
[2024-06-12] MEDS: LEVOTHYROXINE SODIUM 100 MCG TABLET PO (06:49)
[2024-06-12] MEDS: LEVOTHYROXINE SODIUM 75 MCG TABLET PO (06:49)
[2024-06-12] MEDS: DOCUSATE SODIUM 100 MG CAPSULE PO (06:49)
[2024-06-12] MEDS: MULTIVIT/MIN/PREN/FOL AC/IRON TABLET 1 TAB PO (06:49)
--- NOTE | 2024-06-12 07:22 | P.PNOB_ITS ---
OB - PN: Subj Subjective Date/time seen: 06/12/24 07:22 Patient comments: no complaints, pain well controlled and tolerating diet [place] feeding status: exclusively breast feeding Narrative: patient doing well this AM. No complaints. Pain is well controlled. She reports minimal bleeding. She is ambulating and voiding without difficulty. She is tolerating PO. She denies N/V, fever, chills. OB - PN: Obj Data Labs 06/12/24 04:47 Labs: Laboratory Results - last 24 hr 06/11/24 06/11/24 06/11/24 09:25 09:27 13:08 Hgb Hct POC Capillary Glucose 125 H 123 H 88 06/12/24 04:47 Hgb 10.0 L Hct 31.6 L POC Capillary Glucose OB - PN A/P Plan day: 1 Plan: routine care Comments: patient doing well H/H 06/19, VSS continue routine care anticipate discharge home tomorrow Time Spent With Patient Time: Total time spent is greater than 50% in coordination of care (as documented) at patient's floor/unit and/or counseling patient: Time with patient: less than 15 minutes Review of Systems Review of Systems: All systems reviewed & are unremarkable except as noted in HPI and below Exam Const: General: comfortable and no acute distress Resp: Effort & Inspection: normal respiratory effort Cardio: Rate: regular rate GI: GI Palp: Yes Soft to palpation and No Tenderness to palpation present (GI) Auscultation: normal bowel sounds Other: fundus firm and below umbilicus. Psych: Affect: normal affect
[2024-06-12 08:15] VITALS: BP 116/62; PULSE 61; RESP 16; TEMP 37.3; O2SAT 97
--- NOTE | 2024-06-12 08:34 | PC.NURSE ---
Consulted with patient to assess needs related to /pumping. Mother has been putting infant to breast in level 2 nursery and states that she does not have pain when is at the breast nursing. Mother denies any further education for using her breast pump. Mother will call for assistance if the does not latch or if there is discomfort with /pumping. Reported to the Primary RN.
--- NOTE | 2024-06-12 09:27 | WPDANLDPN2 ---
Anes-Prog Note L&D Date/Time: 06/12/24 09:27 Comfortable throughout: labor and delivery Neuraxial method: epidural Epidural/Spinal procedure site: clean & non-tender Neuro status: Neuro function grossly intact. Cardiovascular status: normal Respiratory status: normal Airway patency: baseline Mental status: baseline Post-Op hydration status: normal Vital Signs: Last Vital Signs Temp 37.3 C 06/12/24 08:15 Pulse 61 06/12/24 08:15 Resp 16 06/12/24 08:15 BP 116/62 06/12/24 08:15 Pulse Ox 97 06/12/24 08:15 O2 Del Method Room Air 06/10/24 09:09 Pain score (VAS): 1 I/O: Intake & Output 06/11/24 06/12/24 06/12/24 23:59 07:59 15:59 Intake Total 500 Balance 500 Post-procedural complaints: none Patient feedback: Patient satisfied with anesthetic care.
[2024-06-12 12:16] VITALS: BP 105/58; PULSE 67; RESP 16; TEMP 36.7; O2SAT 98
--- NOTE | 2024-06-12 17:35 | PC.NURSE ---
1500. Mom states she has had her nipples measured and feels confident with pumping. Hydrogel pads and lanolin given to mom for soreness. We also reviewed signs of a correct latch. Mom mentioned that at times baby rolls his upper lip inward and the location of her soreness is at the top of her nipple. We reviewed how to help baby roll his upper lip back out into the correct position if he rolls it. We discusssed the 15, 15 , 15 feeding plan as mom mentioned she is going to supplement baby after feeding. She verbalized understanding of the 15, 15 , 15 feeding plan and will implement if infant does not have a feeding of at least 15 min or longer. Mom encouraged to call if she would like us to check her next latch or if she has any further questions or concerns. Reported to primary RN.
[2024-06-12 20:45] VITALS: BP 136/69; PULSE 71; RESP 18; TEMP 37.4; O2SAT 98
[2024-06-13] MEDS: IBUPROFEN 600 MG TABLET PO (05:20)
--- NOTE | 2024-06-13 06:40 | PM.OBDSVD ---
DS: Admitting Diagnosis Discharge Date 06/13/24 <Sarika Garcia MD - Last Filed: 06/13/24 08:03> Admitting Diagnosis oligohydramnios Gestational diabetes intrauterine gestation Hypothyroidism Advanced maternal age <Cj Back MD - Last Filed: 06/16/24 10:01> DS: Discharge Diagnosis Discharge Diagnosis (1) Normal vaginal delivery: Code(s): O80 - Encounter for full-term uncomplicated delivery <Cj Back MD - Last Filed: 06/16/24 10:01> Status: Acute <Cj Back MD - Last Filed: 06/16/24 10:01> OB - DS: Summary Hospital Course Hospital Course: 38-year-old who presented for induction of labor at 35 weeks 4 days for oligohydramnios. Patient was found to have severe oligohydramnios on testing for gestational diabetes, hypothyroidism, advanced maternal age. Decision was made to proceed with induction of labor. Induction progressed to an uncomplicated vaginal delivery. Her course was uncomplicated. <Cj Back MD - Last Filed: 06/16/24 10:01> OB Procedures : None <Cj Back MD - Last Filed: 06/16/24 10:01> OB Procedures Intrapartum: Spontaneous Vag Delivery <Cj Back MD - Last Filed: 06/16/24 10:01> OB Procedures: : None <Cj Back MD - Last Filed: 06/16/24 10:01> Peripartum Data Infant Delivery Method: Natural Vaginal <Cj Back MD - Last Filed: 06/16/24 10:01> Laceration Description: Perineal - 2nd Degree <Cj Back MD - Last Filed: 06/16/24 10:01> Episiotomy description: None <Cj Back MD - Last Filed: 06/16/24 10:01> complications: none <Cj Back MD - Last Filed: 06/16/24 10:01> 1: Gender: Male <Sarika Garcia MD - Last Filed: 06/13/24 08:03> Status at Discharge Functional status at discharge: independent ambulation <Cj Back MD - Last Filed: 06/16/24 10:01> Overall status at discharge: patient is back to baseline <Cj Back MD - Last Filed: 06/16/24 10:01> Time Spent with Patient Time attestation: Total time spent providing and/or coordinating discharge services: <Cj Back MD - Last Filed: 06/16/24 10:01> Time spent: Less than 30 minutes <Cj Back MD - Last Filed: 06/16/24 10:01> Exam Const: General: comfortable and no acute distress <Cj Back MD - Last Filed: 06/16/24 10:01> Resp: Effort & Inspection: normal respiratory effort <Cj Back MD - Last Filed: 06/16/24 10:01> Auscultation: clear to auscultation bilaterally <Cj Back MD - Last Filed: 06/16/24 10:01> Cardio: Rate: regular rate <Cj Back MD - Last Filed: 06/16/24 10:01> GI: GI Palp: Yes Soft to palpation <Cj Back MD - Last Filed: 06/16/24 10:01> Auscultation: normal bowel sounds <Cj Back MD - Last Filed: 06/16/24 10:01> Other: Fundus firm below umbilicus <Cj Back MD - Last Filed: 06/16/24 10:01> Psych: Appearance: grossly normal <Cj Back MD - Last Filed: 06/16/24 10:01> Mental Status: mental status grossly normal <Cj Back MD - Last Filed: 06/16/24 10:01> Affect: normal affect <Cj Back MD - Last Filed: 06/16/24 10:01> DS: Data Data Completed and Pending Pending studies at discharge: Pending at discharge 06/11/24 13:30 Surgical [PTH] Routine <Cj Back MD - Last Filed: 06/16/24 10:01> Labs on day of discharge: Labs from last 24 hours 06/12/24 06/11/24 04:47 13:08 Hgb 10.0 L Hct 31.6 L POC Capillary Glucose 88 <Cj Back MD - Last Filed: 06/16/24 10:01> Discharge Plan Discharge Attending physician on discharge: Sarika Garcia <Cj Back MD - Last Filed: 06/16/24 10:01> Sarika Garcia <Sarika Garcia MD - Last Filed:
[2024-06-13 07:30] VITALS: BP 121/67; PULSE 55; RESP 16; TEMP 36.6; O2SAT 99
[2024-06-13] MEDS: LEVOTHYROXINE SODIUM 75 MCG TABLET PO (08:09)
[2024-06-13] MEDS: LEVOTHYROXINE SODIUM 100 MCG TABLET PO (08:09)
[2024-06-13] MEDS: BENZONATATE 100 MG CAPSULE PO (08:09)
[2024-06-13] MEDS: DOCUSATE SODIUM 100 MG CAPSULE PO (08:09)
--- NOTE | 2024-06-13 14:30 | PC.NURSE ---
1430 Patient being discharged to No Care Bed and being moved to room 115 as baby is not going to be discharged at this time, baby is under phototherapy. RN notified food and nutrition.
[2024-06-13] MEDS: INFLUENZA TRIVALENT VACCINE 45 MCG/0.5 ML SYRINGE IM (14:59)
[2024-06-14 09:14] VITALS: BP 128/68; PULSE 66; RESP 20; TEMP 37.4; O2SAT 100
== END 2024-06-13 14:30 | disposition home or self-care (01) | DRG 807 ==
LOC: ANHLDR 06-11 06:55 → ANHOB2 06-12 11:35 → ANHLDR 06-16 07:33 → ANHOB2 06-16 07:33
PROVIDERS: Admitting Provider Student in an Organized Health Care Education/Training Program; PCP Family Medicine; Visit Provider Obstetrics & Gynecology
DX: O41.03X0 Oligohydramnios, third trimester, not applicable or unspecified (principal); Z37.0 Single live birth; O62.2 Other uterine inertia; O99.214 Obesity complicating childbirth; E66.01 Morbid (severe) obesity due to excess calories; O70.1 Second degree perineal laceration during delivery; O24.420 Gestational diabetes mellitus in childbirth, diet controlled; Z3A.35 35 weeks gestation of pregnancy; Z23 Encounter for immunization; Z87.891 Personal history of nicotine dependence
CPT/HCPCS: 36415; 82948; 85014; 85018; 85025; 86592; 86703; 86850; 86900; 86901; 88307; 90471; 90656; 93971; A9270; G0008; G0432; J0290; J0702; J2590; J2795; J7120

== ENCOUNTER 2024-06-10 06:17 | Outpatient (RCR) | payer OTHER, SELFPAY ==
[2024-04-28 10:26] VITALS: BP 117/66; PULSE 77
[2024-05-27 07:00] VITALS: BP 133/57; PULSE 76
[2024-05-30 09:14] VITALS: BP 125/62; PULSE 79
[2024-06-03 07:07] VITALS: BP 118/60; PULSE 75
--- NOTE | 2024-06-03 07:55 | PC.NURSE ---
Dr. Back informed YUDELKA is 6.3 cm. Called U/S and paperhanger states deepest vertical pocket is over 4 cm.
--- NOTE | ~2024-06-10 | US_ITS ---
EXAMINATION: US OB follow up w BPP DATE: 05/27/2024 08:12 INDICATION: growth. Gestational diabetes. TECHNIQUE: Real-time ultrasound of the pelvis was performed. The interpreting radiologist was not pre sent for the study. COMPARISON: Comparison to multiple prior studies sequentially, with oldest reviewed study dated 12/02. . FINDINGS: There is a single living fetus in vertex presentation. The placenta is anterior. cardiac activ ity and movement are noted. heart rate is 131 beats per minute (bpm). The amniotic fluid index is 7.4 cm, which is below normal limits. Expected range for gestational age is 8.3-24.5 cm. The following biometric data were obtained: BPD: 86 cm corresponds to gestational age 34 weeks 3 day(s). Head circumference: 308 cm corresponds to gestational age 34 weeks 2 day(s). Abdominal circumference: 310 cm corresponds to gestational age 34 weeks 6 day(s). Femur length: 63 cm corresponds to gestational age 32 weeks 5 day(s). Head circumference to abdominal circumference ratio: 1 (normal range 0.94-1.11). Estimated weight: 2374 g plus or minus 356 g, 70.3%. Biophysical profile performed by the technologist: breathing (30 sec sustained breathing in 30 minutes): 2 out of 2 movement (3 gross body movements in 30 minutes: 2 out of 2 tone (one episode of ffisxoo-ucwakizjy-kpavhfv limb movement): 2 out of 2 Amniotic fluid pocket (2 cm): 2 out of 2 Total score: 8 out of 8 IMPRESSION: 1. Single living fetus in vertex presentation with heart rate of 131 bpm. 2. Normal placenta. 3. Biophysical profile 8 out of 8. 4. Gestational age by ultrasound of 33 weeks 2 day(s) with ultrasound estimated date of delivery (SORIN ) of 07/13/2024. Please correlate with clinical information or other ultrasounds for most accurate ED D. 5. Oligohydramnios. YUDELKA measures 7.4 cm. Reviewed, dictated and finalized at location B. IMPRESSION: 1. Single living fetus in vertex presentation with heart rate of 131 bpm. 2. Normal placenta. 3. Biophysical profile 8 out of 8. 4. Gestational age by ultrasound of 33 weeks 2 day(s) with ultrasound estimated date of delivery (SORIN) of 07/13/2024. Please correlate with clinical informati on or other ultrasounds for most accurate SORIN. 5. Oligohydramnios. YUDELKA measures 7.4 cm.
--- NOTE | ~2024-06-10 | US_ITS ---
EXAMINATION: US OB limited w BPP DATE: 06/03/2024 07:43 INDICATION: Gestational diabetes and advanced maternal age. Assess amniotic fluid index. TECHNIQUE: Real-time pelvic ultrasound was performed. The interpreting radiologist was not present fo r the study. COMPARISON: None. FINDINGS: There is a single living fetus in vertex presentation. The placenta is anterior and not low-lying. F etal heart rate is 130 beats per minute (bpm). Oligohydramnios with amniotic fluid index of 6.3 cm (5 th%-95%: 8.1-24.8 cm at 34 weeks estimated gestational age). Biophysical profile performed by the technologist: breathing (30 sec sustained breathing in 30 minutes): 2 out of 2 movement (3 gross body movements in 30 minutes): 2 out of 2 tone (one episode of tkpxaxc-siiwpipix-gbiuvwh limb movement): 2 out of 2 Amniotic fluid pocket (2 cm): 2 out of 2 Total score: 8 out of 8 IMPRESSION: 1. Single living fetus in vertex presentation with heart rate of 130 bpm. 2. Biophysical profile 8 out of 8. 3. Oligohydramnios with amniotic fluid index of 6.3 cm. Reviewed, dictated and finalized at location A.
--- NOTE | ~2024-06-10 | US_ITS ---
EXAMINATION: US OB limited w BPP DATE: 06/10/2024 07:55 INDICATION: Gestational diabetes TECHNIQUE: Real-time pelvic ultrasound was performed. The interpreting radiologist was not present fo r the study. COMPARISON: Ultrasound dated 06/03/2021. FINDINGS: There is a single living fetus in vertex presentation. The placenta is anterior. cardiac activ ity and movement are demonstrated. heart rate is 147 beats per minute (bpm). There is torey gohydramnios. YUDELKA measures 2.4 cm. Biophysical profile performed by the technologist: breathing (30 sec sustained breathing in 30 minutes): 2 out of 2 movement (3 gross body movements in 30 minutes): 2 out of 2 tone (one episode of wuxyono-taliccctm-vhmyvax limb movement): 2 out of 2 Amniotic fluid pocket (2 cm): 0 out of 2 Total score: 6 out of 8 IMPRESSION: 1. Single living intrauterine in vertex presentation with heart rate of 147 bpm. 2. Oligohydramnios. 3. Biophysical profile 6 out of 8. Reviewed, dictated and finalized at location B.
[2024-06-10 06:58] VITALS: BP 112/53; PULSE 72
== END 2024-07-27 23:59 | disposition home or self-care (01) ==
LOC: ANHOBOP 06:17
PROVIDERS: PCP Family Medicine; Visit Provider Student in an Organized Health Care Education/Training Program
DX: O36.8190 Decreased fetal movements, unspecified trimester, not applicable or unspecified (principal); O41.03X0 Oligohydramnios, third trimester, not applicable or unspecified; Z3A.29 29 weeks gestation of pregnancy; O09.513 Supervision of elderly primigravida, third trimester; O24.419 Gestational diabetes mellitus in pregnancy, unspecified control; Z3A.33 33 weeks gestation of pregnancy; Z3A.34 34 weeks gestation of pregnancy; Z3A.35 35 weeks gestation of pregnancy
CPT/HCPCS: 59025; 76815; 76816; 76819

== ENCOUNTER 2024-07-14 12:30 | Outpatient (CLI) | payer OTHER, SELFPAY ==
[2024-07-14 13:00] LABS: Glucose Fasting 89 mg/dL
[2024-07-14 14:50] LABS: Glucose 1 Hour 109 mg/dL
[2024-07-14 16:14] LABS: Glucose 2 Hour 73 mg/dL
== END 2024-07-14 12:31 | disposition home or self-care (01) ==
LOC: ANHLAB 12:31
PROVIDERS: PCP Family Medicine; Visit Provider Student in an Organized Health Care Education/Training Program
DX: O24.419 Gestational diabetes mellitus in pregnancy, unspecified control (principal); Z3A.00 Weeks of gestation of pregnancy not specified
CPT/HCPCS: 36415; 82951

== ENCOUNTER 2025-02-27 10:49 | Outpatient (CLI) | payer OTHER, SELFPAY ==
--- OUTSIDE RECORDS SUMMARY | 2025-02-27 10:57 | XMS_ITS | Clinical Summary ---
Author Organization [facility] Address [address] [place] [address] Care Team Providers Care Security Installation Technician Name Role Phone Latrice Calvillo MD Primary Care Provider Lacy Enamorado MD Unavailable [phone] Allergies Active Allergy Reactions Criticality Noted Date Comments Latex Medications levothyroxine sodium (TIROSINT) 50 mcg capsule Take 1 capsule (50 mcg total) by mouth er medical technician before breakfast Active famotidine (PEPCID) 20 mg tablet Take 1 tablet (20 mg total) by mouth 2 (two) times a day 60 tablet 11 9 Active prochlorperazine (COMPAZINE) 10 mg tablet Take 1 tablet (10 mg total) by mouth every 6 (six) hours as needed for nausea or vomiting 10 tablet 0 Active Additional Information Patient not taking.Reported on 08/20/2020 omeprazole 20 mg tablet,delayed release (DR/EC) 1-2 tabs daily 7 Active metoclopramide (REGLAN) 10 mg tablet Take 1 tablet (10 mg total) by mouth 3 (three) times a day before meals [address] (PROTONIX) 40 mg EC tablet TAKE 1 TABLET BY MOUTH DAILY 30 tablet 1 1 Active HYDROcodone-acet aminophen (NORCO) 5-325 mg per tabletIndication s:Pain Take 1 tablet by mouth every 6 (six) hours as needed for pain 15 tablet 2 Active Additional Information Patient not taking.Reported on 05/27/2023 ibuprofen (ADVIL,MOTRIN) 600 mg tabletIndication s:Pain Take 1 tablet (600 mg total) by mouth 3 (three) times a day Take with food. 30 tablet 2 Active Additional Information Patient not taking.Reported on 05/27/2023 busPIRone (BUSPAR) 5 mg tablet Take by mouth 2 (two) times a day as needed 3 Active cyclobenzaprine (FLEXERIL) 10 mg tabletIndication s:Acute low back pain without sciatica, unspecified back pain laterality Take 1 tablet (10 mg total) by mouth 3 (three) times a day as needed for muscle spasms 30 tablet 3 Active Active Problems Problem Noted Date Diagnosed Date Gastroenteritis 10/09/2019 Assessment & Plan (10/09/2019 4:07 PM PARACHUTE REPAIRER): Acute episode clinically resolved. Will stop Reglan at this time. Will stop Compazine. Maintain low-fat low-calorie diet. Call for follow-up if symptoms continued a recurred. Class 3 severe obesity in adult 01/29/2019 Assessment & Plan (10/09/2019 4:08 PM PARACHUTE REPAIRER): Discussed with the patient low calorie diet and discussed with the patient diet weight loss for her will be a vital important for long-term health. Assessment & Plan (01/29/2019 10:03 AM CDT): Will consider outpatient evaluation for RADHA Screening for DM Weight loss and diatary modifications discussed with patient Gestational diabetes 01/29/2019 Assessment & Plan (01/29/2019 9:59 AM CDT): H/o gestational diabetes, Patient states that had not been tested/screed for DM afterwards BS review - On labs BS persistently elevated >100, suspect in prediabetic range Patient to follow up with PCP Will need to have HbA1c checked outpatient - orders provided to the patient Discussed causes for type 2 daibetes and systemic effects including Neuropathy and gastroparesis Discussed dietary modifications and exercising, Encouraged weight loss Superficial gastritis without hemorrhage 019 Assessment & Plan (01/29/2019 10:22 AM CDT): Noted on EGD Patient started on Famotidine. Follow up with GI for reassessment as instructed Esophagitis 01/29/2019 Assessment & Plan (01/29/2019 10:24 AM CDT): Noted on EGD Pathology results are pending Currently on Famotidine Follow up with GI as instructed Right upper quadrant abdominal pain 01/27/2019 Overview (01/27/2019): Recurrent, intermittent Assessment & Plan (01/29/2019 9:54 AM CDT): REsolved Acquired hypothyroidism 01/27/2019 Assessment & Plan (01/29/2019 9:59 AM CDT): Recently the dose of the levothyroxine was adjusted Follow up with PCP - repeat TSH in 4-6 weeks Check for iodone levels as well Orders provided Intractable vomiting with nausea 01/27/2019 Overview (01/27/2019): Added automatically from request for surgery [id number] Assessment & Plan (01/29/2019 10:25 AM CDT): Currently resolved Continue with Pepcid , zofran and reglan Patient underwent EGD, results were consistent with mild gastritis and mild esophagitis Biopsies were obtained, Path results are pending Follow up with GI as recommended by GI Surgical History Surgery Date Site/Laterality Comments CHOLECYSTECTOMY Medical History Medical History Date Comments Hypothyroidism Asthma Hypothyroid 01/27/2019 Smoking Quit 2013 Family History Medical History Relation Name Comments Breast cancer Neg Hx Endometrial cancer Neg Hx Ovarian cancer Neg Hx Thyroid cancer Neg Hx Social History Tobacco Use Types Packs/Day Years Used Date Smoking Tobacco: Former Cigarettes 0.5 5 0 08/20/1996 - 08/20/2001 Smokeless Tobacco: Never Tobacco Cessation:Counseling Given: Not Answered Alcohol Use Standard Drinks/Week Comments Not Currently 0 (1 standard drink = 0.6 oz pur e alcohol) PHQ-2 Answer Date Recorded PHQ-2 Score 0 04/11/2019 Personal Safety Answer Date Recorded Getting School Help Needed Not on file 10/14 Comments No Sex and Gender Information Value Date Recorded Sex Assigned at Not on file Legal Sex Female 5:53 PM PARACHUTE REPAIRER Gender Identity Not on file Sexual Orientation Not on file Obstetrics History Para Term AB IAB SAB Ectopic Multiple Livin g Live Births 2 2 2 Date Outcome GA Total Labor Labor/2nd/3rd Weight Sex Type Anes PTL Marianne A1 A5 Name Clin Term Term Last Filed Vital Signs Vital Sign Reading Time Taken Comments Blood Pressure 126/70 05/27/2023 3:32 PM CDT Pulse 88 05/27/2023 3:32 PM CDT Temperature 37.1 C (98.8 F) 05/27/2023 3:32 PM CDT Respiratory Rate 20 05/27/2023 3:32 PM CDT Oxygen Saturation 98% 05/27/2023 3:32 PM CDT Inhaled Oxygen Concentration - - Weight 113.4 kg (250 lb) 05/27/2023 3:32 PM CDT Height 160 cm (5' 3) 08/20/2020 10:25 AM PARACHUTE REPAIRER Body Mass Index 44.29 08/20/2020 10:25 AM PARACHUTE REPAIRER Plan of Treatment Health Maintenance Due Date Last Done Comments Albumin Creatinine Ratio, Urine 1984 Cervical Cancer Screening 1984 Hepatitis C Screening 1984 Dilated Eye Exam 1984 Foot Exam 1984 Lipid Panel 1984 Varicella Vaccines (1 of 2 - 13+ 2-dose series) 1997 Regular Well Visit/Exam 18-64 2002 Pneumococcal vaccine <65 (1 of 2 - PCV) 12/25/2003 Hemoglobin A1C 07/31/2019 01/29/2019 eGFR 09/22/2020 09/22/2019, 01/18, 01/27/2019, Additional history exists Depression Screening 10/02/2020 10/02/2019, 10/02/2019, 01/27/2019 Breast Cancer Screening-Mammogram 04/01/2022 04/01/2021 DTaP/Tdap/Td Vaccine (2 - Td or Tdap) 12/27/2024 12/27/2014 Influenza Vaccine (Season Ended) 2025 Hepatitis B Screening Completed 04/29/2015, 015 HPV Vaccines Aged Out No longer eligi ble based on patient's age to complete this topic Procedures Procedure Name Priority Date/Time Associated Diagnosis Comments DIAGNOSTIC MAMMOGRAM BILATERAL W GAURANG Schedule Routine, Read Routine (OP Routine) 04/01/2021 10:53 AM CDT Unspecified lump in the left breast, unspecified quadrant EGFR STAT 09/22/2019 4:00 AM PARACHUTE REPAIRER HEMOGLOBIN A1C Routine 01/29/2019 11:23 AM CDT from Last 3 Months or Most Recently Relevant to Health Maintenance Results * Diagnostic Mammogram Bilateral W Gaurang (04/01/2021 10:53 AM CDT) Anatomical Region Laterality Modality Breast Bilateral Mammography 04/01/2021 12:4 5 PM CDT Impressions 04/01/2021 12:45 PM CDT BI-RADS Category 3, probably benign. No evidence of dominant mass is clinically indicated suggest follow-up left breast ultrasound between 6 and 8 weeks. Electronically signed by: Swetha Prabhakar M.D. Narrative 04/01/2021 12:45 PM CDT Examination: Bilateral C-view 2D digital diagnostic mammogram with digital tomosynthesis Order Date: 04/01/2021 10:30 AM History: Routine screening, lump left breast on for one and half month Comparison: Baseline Technique Craniocaudal ,mediolateral oblique and mediolateral views of both breasts were obtained utilizing full field digital mammography. Findings There are scattered areas of fibroglandular density. In the area of palpable abnormality and in the area of BB at upper outer quadrant of the left breast there is no evidence of dominant mass. There is no suspicious dominant mass, clustered microcalcification or architectural distortion. This examination has been subjected to R2/CAD analysis. Limited ultrasound of the left breast. Targeted ultrasound of the left breast is performed in the area of palpable lump at 11:30 10 cm from the nipple. There is normal fibroglandular breast parenchyma without any evidence of solid or a cystic mass. In the area of palpable abnormality there is slight increased echos that could be due to mild infection please clinically correlate. There is no evidence of fluid collection. If clinically indicated suggest follow-up limited left breast ultrasound between 6 and 8 weeks. Palpable abnormality based on clinical findings. us Latrice Calvillo MD IMG MAMMO PROCEDURES Fi nal Result * eGFR (09/22/2019 4:00 AM PARACHUTE REPAIRER) eGFR 71 mL/min/1.7 3 m2 [facility] ([facility]) Comment: Interpretive Data Reference Interval Normal >/= 90 mL/min/1.73m2 Mildly decreased* 60 - 89 mL/min/1.73m2 Mildly to moderately decreased 45 - 59 mL/min/1.73m2 Moderately to severely decreased 30 - 44 mL/min/1.73m2 Severely decreased 15 - 29 mL/min/1.73m2 Kidney Failure < 15 mL/min/1.73m2 *Relative to young adult level If -Cuban multiply value by 1.16. Estimated glomerular filtration rate is determined by the CKD-EPI equation recommended by the National Kidney Foundation (KDIGO 2012 Clinical Practice Guideline for the Evaluation and Management of Chronic Kidney Disease. Kidney Intnl Suppl Aug 2012;3:1). The CKD-EPI equation should not be used for patients with unstable renal function and has not been validated in children and those over 70. Current interpretive data was last reviewed 2016. Blood specimen (specimen) 09/22/2019 4:00 AM PARACHUTE REPAIRER 09/22/2019 4:20 AM PARACHUTE REPAIRER Rajeev Barger MD LAB BLOOD ORDERABLES Final R esult [facility] ([facility]) 1 [facility] Department [place] [address] * Hemoglobin A1c (01/29/2019 11:23 AM CDT) Hgb A1C 4.9 4.0 - 5.6 % [facility] ([facility]) Estimated Average Glucose 94 mg/dL [facility] Comment: The ADA recommends reporting an estimated Average Glucose (eAG) with all Hemoglobin A1c results using the equation derived from a study of 507 normal and diabetic adults. Minority populations were underrepresented and children were not included. (Diabetes Care 31:5860-9160, 2008). The eAG is not equivalent to a fasting glucose. Blood specimen (specimen) 01/29/2019 11:23 AM CDT 01/29/2019 11:39 AM CDT Narrative [facility] ([facility]) - 01/29/2019 12:16 PM CDT Mara Mobley MD LAB BLOOD ORDERABLES Final Re sult [facility] ([facility]) 1 [facility] Department [place] [address] from Last 3 Months or Most Recently Relevant to Health Maintenance Insurance [facility] Address[id number] [place] [address] [facility] Address: [address] [address] [place] [address] [facility] Address: [address] [address] [place] [address] Advance Directives For more information, please contact: [phone] * Full Code (Latest Code Status on File) Date Activated Date Inactivated Comments 01/28/2019 2:54 PM 01/29/2019 3:43 PM * Full Code Date Activated Date Inactivated Comments 01/28/2019 2:54 PM 01/28/2019 2:54 PM * Full Code Date Activated Date Inactivated Comments 01/27/2019 7:47 AM 01/28/2019 2:53 PM Care Teams Security Installation Technician Relationship Specialty Start Date End Date Latrice Calvillo MD [address] [address] PCP - General 08/06/17 Lacy Enamorado MD [address] [address] Consulting Physician Gastroenterology 01/29/19
--- OUTSIDE RECORDS SUMMARY | 2025-02-27 10:57 | XMS_ITS | Clinical Summary ---
Author Organization [facility] Address [address] [place] [address] Care Team Providers Care School Traffic Guard Name Role Phone Unavailable Primary Care Provider Unavailabl e Source Comments [facility],non-owned Affiliates and Associated Physician Practices is amultiple site organization consisting of ambulatory clinics and hospital sitesin [place], [place], [place] and [place]. This disclosure is being madepursuant to the Care Everywhere program and may not contain all information available regarding this patient. Last updated 18.[facility] Allergies Active Allergy Reactions Criticality Noted Date Comments Latex Rash Medium 12/26/2023 Medications * Be aware that medications may not be up to date on this document. Alwaysverify current medications with the patient. levothyroxine (Synthroid) 175 MCG tablet Take 1 (one) tablet by mouth daily before breakfast Active Vit-DSS-Fe Fum-FA ( vitamin with iron) tablet Take 1 (one) tablet by mouth once daily Active aspirin (Aspirin) 81 MG chew tablet Take 1 (one) tablet by mouth once daily Active Active Problems Problem Noted Date Diagnosed Date Third 05/28/2024 Advanced maternal age, primigravida, antepartum 05/28/2024 Hypothyroidism affecting , antepartum 1 Diet controlled gestational diabetes mellitus (GDM) in third trimester 05/28/2024 Social History Tobacco Use Types Packs/Day Years Used Date Smoking Tobacco: Never Assessed Tobacco Cessation:Counseling Given: Not Answered Comments No Sex and Gender Information Value Date Recorded Sex Assigned at Not on file Legal Sex Female 6:25 AM SKIP HOIST ENGINEER Gender Identity Not on file Sexual Orientation Not on file Last Filed Vital Signs Vital Sign Reading Time Taken Comments Blood Pressure 126/70 05/28/2024 1:51 PM CDT Pulse 89 05/28/2024 1:51 PM CDT Temperature - - Respiratory Rate - - Oxygen Saturation - - Inhaled Oxygen Concentration - - Weight 121.5 kg (267 lb 12.8 oz) 05/28/2024 1:51 PM CDT Height 160 cm (5' 3) 05/28/2024 1:51 PM CDT Body Mass Index 47.44 05/28/2024 1:51 PM CDT Plan of Treatment Health Maintenance Due Date Last Done Comments LIPID TESTING 1984 HIV SCREENING 12/25/1999 HEPATITIS C SCREENING 12/20/2002 DTAP/TDAP/TD VACCINES (1 - Tdap) 12/25/2003 HEPATITIS B VACCINE (1 of 3 - 19+ 3-dose series) 12/25/2003 PAP SMEAR 2005 HPV VACCINE (1 - 3-dose SCDM series) 12/25/2011 MAMMOGRAM 04/01/2023 04/01/2021 COVID-19 VACCINE (1 - 2023-2 5 season) 2024 DEPRESSION SCREENING 08/20/2024 INFLUENZA VACCINE (#1) 2025 ZOSTER VACCINE (1 of 2) 2034 HIB VACCINE Aged Out No longer eligi ble based on patient's age to complete this topic MENINGOCOCCAL (Group B) VACC INE SHARED DECISION-MAKING Aged Out No longer eligibl e based on patient's age to complete this topic MENINGOCOCCAL GROUPS A/C/Y/W VACCINE Aged Out No longer eligible b ased on patient's age to complete this topic PNEUMOCOCCAL VACCINE Aged Out No long er eligible based on patient's age to complete this topic Insurance [facility]
--- OUTSIDE RECORDS SUMMARY | 2025-02-27 10:57 | XMS_ITS | Referral Summary ---
Author Organization [facility] Address [address] [place] [address] Care Team Providers Care Fruit Peeler Name Role Phone Latrice Calvillo MD Primary Care Provider Lacy Enamorado MD Unavailable [phone] Allergies Active Allergy Reactions Criticality Noted Date Comments Latex Medications levothyroxine sodium (TIROSINT) 50 mcg capsule Take 1 capsule (50 mcg total) by mouth elementary secretary before breakfast Active famotidine (PEPCID) 20 mg [...] 10/09/2019 Assessment & Plan (10/09/2019 4:07 PM PACK MULE WORKER): Acute episode clinically resolved. Will stop Reglan at this time. Will stop Compazine. Maintain low-fat low-calorie diet. Call for follow-up if symptoms continued a recurred. Class 3 severe obesity in adult 01/29/2019 Assessment & Plan (10/09/2019 4:08 PM PACK MULE WORKER): Discussed with the patient low calorie diet [...] (01/27/2019): Added automatically from request for surgery [id number] Assessment & Plan (01/29/2019 10:25 AM CDT): Currently resolved Continue with Pepcid , zofran and reglan Patient underwent EGD, results were consistent with mild gastritis and mild esophagitis Biopsies were obtained, Path results are pending Follow up with GI as recommended by GI Social History Tobacco Use Types Packs/Day Years [...] on file Legal Sex Female 5:53 PM PACK MULE WORKER Gender Identity Not on file Sexual Orientation [...] 160 cm (5' 3) 08/20/2020 10:25 AM PACK MULE WORKER Body Mass Index 44.29 08/20/2020 10:25 AM PACK MULE WORKER Plan of Treatment Not on file Procedures Procedure Name Priority Date/Time Associated Diagnosis Comments DIAGNOSTIC MAMMOGRAM BILATERAL W GAURANG Schedule Routine, Read Routine (OP Routine) 04/01/2021 10:53 AM CDT Unspecified lump in the left breast, unspecified quadrant EGFR STAT 09/22/2019 4:00 AM PACK MULE WORKER HEMOGLOBIN A1C Routine 01/29/2019 11:23 AM CDT [...] nal Result * eGFR (09/22/2019 4:00 AM PACK MULE WORKER) eGFR 71 mL/min/1.7 3 m2 [facility] ([facility]) Comment: Interpretive Data Reference Interval Normal >/= 90 mL/min/1.73m2 Mildly decreased* 60 - 89 mL/min/1.73m2 Mildly to moderately decreased 45 - 59 mL/min/1.73m2 Moderately to severely decreased 30 - 44 mL/min/1.73m2 Severely decreased 15 - 29 mL/min/1.73m2 Kidney Failure < 15 mL/min/1.73m2 *Relative to young adult level If -Malaysian multiply value by 1.16. Estimated glomerular filtration [...] 2016. Blood specimen (specimen) 09/22/2019 4:00 AM PACK MULE WORKER 09/22/2019 4:20 AM PACK MULE WORKER us Rajeev Barger MD LAB BLOOD ORDERABLES Final R esult [facility] ([facility]) 1 [facility] [place] [address] * Hemoglobin A1c (01/29/2019 11:23 AM CDT) Hgb A1C 4.9 4.0 - 5.6 % [facility] ([facility]) Estimated Average Glucose 94 mg/dL [facility] ([facility]) Comment: The ADA recommends reporting an estimated Average Glucose (eAG) with all Hemoglobin A1c results using the equation derived from a study of 507 normal and diabetic adults. Minority populations were underrepresented and children were not included. (Diabetes Care 31:8416-5967, 2008). The eAG is not equivalent to a fasting glucose. Blood specimen (specimen) 01/29/2019 11:23 AM CDT 01/29/2019 11:39 AM CDT Narrative [facility] ([facility]) - 01/29/2019 12:16 PM CDT us Mara Mobley MD LAB BLOOD ORDERABLES Final Re sult [facility]) 1 [facility] Department [place] [address] from Last 3 Months or Most Recently Relevant to Health Maintenance Insurance [facility] Advance Directives For more information, please contact: [phone] * Full Code (Latest Code Status on File) Date Activated Date Inactivated Comments 01/28/2019 2:54 PM 01/29/2019 3:43 PM * Full Code Date Activated Date Inactivated Comments 01/28/2019 2:54 PM 01/28/2019 2:54 PM * Full Code Date Activated Date Inactivated Comments 01/27/2019 7:47 AM 01/28/2019 2:53 PM Care Teams Fruit Peeler Relationship Specialty Start Date End Date Latrice Calvillo MD [address] [place] [address] PCP - General 08/06/17 Lacy Enamorado MD [address] [place] [address] Consulting Physician Gastroenterology 01/29/19
[2025-02-27 11:28] LABS: Hematocrit 41.5 % (37.0-47.0); Hemoglobin 13.5 g/dL (12.0-15.0); Immature Granulocyte Percent A 0.4 % (0-0.5); Lymphocytes Absolute Auto 1.60 K/mm3 (0.9-3.2); Mean Corpuscular HGB Conc 32.5 g/dl (32-36); Mean Corpuscular Hemoglobin 27.2 pg (26-34); Mean Corpuscular Volume 83.5 fl (80-100); Nucleated Red Blood Cells Absolute Auto 0.000 K/mm3 (0.0-0.012); Nucleated Red Blood Cells Perc 0.0 % (0.0-0.2); Platelet Count Result 251 k/mm3 (150-375); Red Blood Count 4.97 M/mm3 (4.2-5.4); White Blood Count 6.9 K/mm3 (4.5-10.0)
[2025-02-27 11:49] LABS: Alanine Aminotransferase 30 U/L (6-35); Albumin Level 4.3 g/dL (3.5-5.1); Alkaline Phosphatase 77 U/L (38-126); Anion Gap 7 mmol/L (4-12); Aspartate Amino Transferase 35 U/L (14-36); Bilirubin,Total 2.0 mg/dL (0.2-1.3); Blood Urea Nitrogen 13 mg/dL (7-17); Calcium 9.1 mg/dL (8.4-10.2); Carbon Dioxide 25 mmol/L (22-30); Chloride 107 mmol/L (98-107); Estimated Glomerular Filt Rate 57; Glucose 96 mg/dL (65-110); Potassium 4.3 mmol/L (3.4-5.0); Sodium 139 mmol/L (137-145); Total Protein 7.6 g/dL (6.3-8.2)
[2025-02-27 12:05] LABS: Free T4 Free Thyroxine 1.22 ng/dL (0.78-2.19)
[2025-02-27 12:21] LABS: Thyroid Stimulating Hormone 4.410 uIU/mL (0.465-4.680); Total Triiodothyronine (T3) 1.38 NG/ML (0.82-1.58)
[2025-03-03 15:49] LABS: H pylori, Urea Breath NOT DETECTED (NOT DETECTED)
== END 2025-02-27 10:50 | disposition home or self-care (01) ==
LOC: ANHLAB 10:50
PROVIDERS: PCP Family Medicine; Visit Provider Family Medicine
DX: I10 Essential (primary) hypertension (principal); E03.9 Hypothyroidism, unspecified
CPT/HCPCS: 36415; 80053; 83013; 84439; 84443; 84480; 85025

== ENCOUNTER 2025-03-14 01:44 | Emergency (ER) | payer OTHER, SELFPAY ==
--- OUTSIDE RECORDS SUMMARY | 2025-03-14 01:46 | XMS_ITS | Clinical Summary ---
Author Organization [facility] Address [address] [place] [address] Care Team Providers Care Manager Of Internal Name Role Phone Latrice Calvillo MD Primary Care Provider Lacy Enamorado MD Unavailable [phone] Allergies Active Allergy Reactions Criticality Noted Date Comments Latex Medications levothyroxine sodium (TIROSINT) 50 mcg capsule Take 1 capsule (50 mcg total) by mouth structural engineering technician before breakfast Active famotidine (PEPCID) 20 [...] 10/09/2019 Assessment & Plan (10/09/2019 4:07 PM SWITCHBOARD OPERATOR SUPERVISOR): Acute episode clinically resolved. Will stop Reglan at this time. Will stop Compazine. Maintain low-fat low-calorie diet. Call for follow-up if symptoms continued a recurred. Class 3 severe obesity in adult 01/29/2019 Assessment & Plan (10/09/2019 4:08 PM SWITCHBOARD OPERATOR SUPERVISOR): Discussed with the patient low calorie diet [...] (01/27/2019): Added automatically from request for surgery [id number] Assessment & Plan (01/29/2019 10:25 AM CDT): [...] on file Legal Sex Female 5:53 PM SWITCHBOARD OPERATOR SUPERVISOR Gender Identity Not on file Sexual Orientation [...] 160 cm (5' 3) 08/20/2020 10:25 AM SWITCHBOARD OPERATOR SUPERVISOR Body Mass Index 44.29 08/20/2020 10:25 AM SWITCHBOARD OPERATOR SUPERVISOR Plan of Treatment Health Maintenance Due Date Last Done Comments Albumin Creatinine Ratio, Urine 1984 Cervical Cancer Screening 1984 Hepatitis C Screening 1984 Dilated Eye Exam 1984 Foot Exam 1984 Lipid Panel 1984 Varicella Vaccines (1 of 2 - 13+ 2-dose series) 1997 Regular Well Visit/Exam 18-64 2002 Pneumococcal vaccine <65 (1 of 2 - PCV) 12/25/2003 HPV Vaccines (1 - 3-dose SCD M series) 12/25/2011 Hemoglobin A1C 07/31/2019 01/29/2019 eGFR 09/22/2020 09/22/2019, 01/18, 01/27/2019, Additional history exists Depression Screening 10/02/2020 10/02/2019, 10/02/2019, 01/27/2019 Breast Cancer Screening-Mammogram 04/01/2022 021 DTaP/Tdap/Td Vaccine (2 - Td or Tdap) 12/27/2024 12/27/2014 Influenza Vaccine (#1) 2025 Hepatitis B Screening Completed 04/29/2015, 015 Procedures Procedure Name Priority Date/Time Associated Diagnosis Comments DIAGNOSTIC MAMMOGRAM BILATERAL W HERMANN Schedule Routine, Read Routine (OP Routine) 04/01/2021 10:53 AM CDT Unspecified lump in the left breast, unspecified quadrant EGFR STAT 09/22/2019 4:00 AM SWITCHBOARD OPERATOR SUPERVISOR HEMOGLOBIN A1C Routine 01/29/2019 11:23 AM CDT from Last 3 Months or Most Recently Relevant to Health Maintenance Results * Diagnostic Mammogram Bilateral W Hermann (04/01/2021 10:53 AM CDT) Anatomical Region Laterality [...] nal Result * eGFR (09/22/2019 4:00 AM SWITCHBOARD OPERATOR SUPERVISOR) eGFR 71 mL/min/1.7 3 m2 [facility] ([place]) Comment: Interpretive Data Reference Interval Normal >/= 90 mL/min/1.73m2 Mildly decreased* 60 - 89 mL/min/1.73m2 Mildly to moderately decreased 45 - 59 mL/min/1.73m2 Moderately to severely decreased 30 - 44 mL/min/1.73m2 Severely decreased 15 - 29 mL/min/1.73m2 Kidney Failure < 15 mL/min/1.73m2 *Relative to young adult level If -Finnish multiply value by 1.16. Estimated glomerular filtration [...] 2016. Blood specimen (specimen) 09/22/2019 4:00 AM SWITCHBOARD OPERATOR SUPERVISOR 09/22/2019 4:20 AM SWITCHBOARD OPERATOR SUPERVISOR Rajeev Barger MD LAB BLOOD ORDERABLES Final R esult [facility] ([place]) 1 [facility] Department [place] [address] * Hemoglobin A1c (01/29/2019 11:23 AM CDT) Hgb A1C 4.9 4.0 - 5.6 % [facility] ([place]) Estimated Average Glucose 94 mg/dL [facility] ([place]) Comment: The ADA recommends reporting an estimated Average Glucose (eAG) with all Hemoglobin A1c results using the equation derived from a study of 507 normal and diabetic adults. Minority populations were underrepresented and children were not included. (Diabetes Care 31:3401-1937, 2008). The eAG is not equivalent to a fasting glucose. Blood specimen (specimen) 01/29/2019 11:23 AM CDT 01/29/2019 11:39 AM CDT Narrative [facility] ([place]) - 01/29/2019 12:16 PM CDT Mara Mobley MD LAB BLOOD ORDERABLES Final Re sult [facility] ([place]) 1 [facility] [place] [address] from Last 3 Months or Most Recently Relevant to Health Maintenance Insurance Advance Directives For more information, please contact: [phone] * Full Code (Latest Code Status on File) Date Activated Date Inactivated Comments 01/28/2019 2:54 PM 01/29/2019 3:43 PM * Full Code Date Activated Date Inactivated Comments 01/28/2019 2:54 PM 01/28/2019 2:54 PM * Full Code Date Activated Date Inactivated Comments 01/27/2019 7:47 AM 01/28/2019 2:53 PM Care Teams Manager Of Internal Relationship Specialty Start Date End Date Latriec Calvillo MD [address] [place] [address] PCP - General 08/06/17 Lacy Enamorado MD [address] [place] [address] Consulting Physician Gastroenterology 01/29/19
--- OUTSIDE RECORDS SUMMARY | 2025-03-14 01:46 | XMS_ITS | Clinical Summary ---
Author Organization [facility] [employer] Address [address] [place] [address] Care Team Providers Care Social Media Designer Name Role Phone Unavailable Primary Care Provider Unavailabl e Source Comments [facility] [employer],non-owned Affiliates and Associated Physician Practices is amultiple site organization consisting of ambulatory clinics and hospital sitesin [place], [place], [place] and [place]. This disclosure is being madepursuant to the Care Everywhere program and may not contain all information available regarding this patient. 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
--- OUTSIDE RECORDS SUMMARY | 2025-03-14 01:46 | XMS_ITS | Referral Summary ---
Author Organization [facility] Address [address] [place] [address] Care Team Providers Care Accounts Receivable Analyst Name Role Phone Latrice Calvillo MD Primary Care Provider Lacy Enamorado MD Unavailable [phone] Allergies Active Allergy Reactions Criticality Noted Date Comments Latex Medications levothyroxine sodium (TIROSINT) 50 mcg capsule Take 1 capsule (50 mcg total) by mouth hearing aid assembly supervisor before breakfast Active famotidine (PEPCID) 20 mg [...] 10/09/2019 Assessment & Plan (10/09/2019 4:07 PM UPPER LINING CEMENTER): Acute episode clinically resolved. Will stop Reglan at this time. Will stop Compazine. Maintain low-fat low-calorie diet. Call for follow-up if symptoms continued a recurred. Class 3 severe obesity in adult 01/29/2019 Assessment & Plan (10/09/2019 4:08 PM UPPER LINING CEMENTER): Discussed with the patient low calorie diet [...] (01/27/2019): Added automatically from request for surgery [id number] Assessment & Plan (01/29/2019 10:25 AM CDT): [...] on file Legal Sex Female 5:53 PM UPPER LINING CEMENTER Gender Identity Not on file Sexual Orientation [...] 160 cm (5' 3) 08/20/2020 10:25 AM UPPER LINING CEMENTER Body Mass Index 44.29 08/20/2020 10:25 AM UPPER LINING CEMENTER Plan of Treatment Not on file Procedures Procedure Name Priority Date/Time Associated Diagnosis Comments DIAGNOSTIC MAMMOGRAM BILATERAL W GAURANG Schedule Routine, Read Routine (OP Routine) 04/01/2021 10:53 AM CDT Unspecified lump in the left breast, unspecified quadrant EGFR STAT 09/22/2019 4:00 AM UPPER LINING CEMENTER HEMOGLOBIN A1C Routine 01/29/2019 11:23 AM CDT [...] nal Result * eGFR (09/22/2019 4:00 AM UPPER LINING CEMENTER) eGFR 71 mL/min/1.7 3 m2 [facility] ([place]) Comment: Interpretive Data Reference Interval Normal >/= 90 mL/min/1.73m2 Mildly decreased* 60 - 89 mL/min/1.73m2 Mildly to moderately decreased 45 - 59 mL/min/1.73m2 Moderately to severely decreased 30 - 44 mL/min/1.73m2 Severely decreased 15 - 29 mL/min/1.73m2 Kidney Failure < 15 mL/min/1.73m2 *Relative to young adult level If -Palestinian multiply value by 1.16. Estimated glomerular filtration [...] 2016. Blood specimen (specimen) 09/22/2019 4:00 AM UPPER LINING CEMENTER 09/22/2019 4:20 AM UPPER LINING CEMENTER us Rajeev Barger MD LAB BLOOD ORDERABLES Final R esult [facility] ([place]) 1 [facility] [place] [address] * Hemoglobin A1c (01/29/2019 11:23 AM CDT) [...] and children were not included. (Diabetes Care 31:3433-3726, 2008). The eAG is not equivalent to a fasting glucose. Blood specimen (specimen) 01/29/2019 11:23 AM CDT 01/29/2019 11:39 AM CDT Narrative [facility] ([place]) - 01/29/2019 12:16 PM CDT us Mara Mobley MD LAB BLOOD ORDERABLES Final Re sult [facility] [place]) 1 [facility] Department [place] [address] from Last 3 Months or Most Recently Relevant to Health Maintenance Insurance [facility] CHOICE PLUS Advance Directives For more information, please contact: [phone] * Full Code (Latest Code Status on File) Date Activated Date Inactivated Comments 01/28/2019 2:54 PM 01/29/2019 3:43 PM * Full Code Date Activated Date Inactivated Comments 01/28/2019 2:54 PM 01/28/2019 2:54 PM * Full Code Date Activated Date Inactivated Comments 01/27/2019 7:47 AM 01/28/2019 2:53 PM Care Teams Accounts Receivable Analyst Relationship Specialty Start Date End Date Latrice Calvillo MD [address] [place] [address] PCP - General 08/06/17 Lacy Enamorado MD [address] [place] [address] Consulting Physician Gastroenterology 01/29/19
--- NOTE | 2025-03-14 01:56 | PC.NURSE ---
pt to utility operator yarn I feel better now, I am going to go. Pt ambulatory with steady gait to exit. NAD Noted.
--- OUTSIDE RECORDS SUMMARY | 2025-03-14 02:11 | XMS_ITS | Clinical Summary ---
Author Organization [facility] [employer] Address [address] [place] [address] Care Team Providers Care Property Assessment Monitor Name Role Phone Unavailable Primary Care Provider Unavailabl e Source Comments [facility] [employer],non-owned Affiliates and Associated Physician Practices is amultiple site organization consisting of ambulatory clinics and hospital sitesin [place], [place], [place] and [place]. This disclosure is being madepursuant to the Care Everywhere program and may not contain all information available regarding this patient. 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
--- OUTSIDE RECORDS SUMMARY | 2025-03-14 02:11 | XMS_ITS | Referral Summary ---
Author Organization [facility] Address [address] [place] [address] Care Team Providers Care Full Stack Java Developer Name Role Phone Latrice Calvillo MD Primary Care Provider Lacy Enamorado MD Unavailable [phone] Allergies Active Allergy Reactions Criticality Noted Date Comments Latex Medications levothyroxine sodium (TIROSINT) 50 mcg capsule Take 1 capsule (50 mcg total) by mouth big data engineer before breakfast Active famotidine (PEPCID) 20 mg [...] 10/09/2019 Assessment & Plan (10/09/2019 4:07 PM PIPE TESTER): Acute episode clinically resolved. Will stop Reglan at this time. Will stop Compazine. Maintain low-fat low-calorie diet. Call for follow-up if symptoms continued a recurred. Class 3 severe obesity in adult 01/29/2019 Assessment & Plan (10/09/2019 4:08 PM PIPE TESTER): Discussed with the patient low calorie diet [...] (01/27/2019): Added automatically from request for surgery [id number] Assessment & Plan (01/29/2019 10:25 AM CDT): [...] on file Legal Sex Female 5:53 PM PIPE TESTER Gender Identity Not on file Sexual Orientation [...] 160 cm (5' 3) 08/20/2020 10:25 AM PIPE TESTER Body Mass Index 44.29 08/20/2020 10:25 AM PIPE TESTER Plan of Treatment Not on file Procedures Procedure Name Priority Date/Time Associated Diagnosis Comments DIAGNOSTIC MAMMOGRAM BILATERAL W GAURANG Schedule Routine, Read Routine (OP Routine) 04/01/2021 10:53 AM CDT Unspecified lump in the left breast, unspecified quadrant EGFR STAT 09/22/2019 4:00 AM PIPE TESTER HEMOGLOBIN A1C Routine 01/29/2019 11:23 AM CDT [...] nal Result * eGFR (09/22/2019 4:00 AM PIPE TESTER) eGFR 71 mL/min/1.7 3 m2 [facility] ([place]) Comment: Interpretive Data Reference Interval Normal >/= 90 mL/min/1.73m2 Mildly decreased* 60 - 89 mL/min/1.73m2 Mildly to moderately decreased 45 - 59 mL/min/1.73m2 Moderately to severely decreased 30 - 44 mL/min/1.73m2 Severely decreased 15 - 29 mL/min/1.73m2 Kidney Failure < 15 mL/min/1.73m2 *Relative to young adult level If -Ugandan multiply value by 1.16. Estimated glomerular filtration [...] 2016. Blood specimen (specimen) 09/22/2019 4:00 AM PIPE TESTER 09/22/2019 4:20 AM PIPE TESTER us Rajeev Barger MD LAB BLOOD ORDERABLES Final R esult [facility] ([place]) 1 [facility] Department of [employer] [place] [address] * Hemoglobin A1c (01/29/2019 11:23 AM CDT) [...] and children were not included. (Diabetes Care 31:5551-5612, 2008). The eAG is not equivalent to a fasting glucose. Blood specimen (specimen) 01/29/2019 11:23 AM CDT 01/29/2019 11:39 AM CDT Narrative [facility] ([place]) - 01/29/2019 12:16 PM CDT us Mara Mobley MD LAB BLOOD ORDERABLES Final Re sult [facility] [place]) 1 [facility] Department [place] [address] from Last 3 Months or Most Recently Relevant to Health Maintenance Insurance [facility] CHOICE PLUS [facility]MO/PPO Address: [facility] [address] [place] [address] [facility]/PPO Address: [place] [address] [facility]/PP[facility] Address: [place] [address] Advance Directives For more information, please contact: [phone] * Full Code (Latest Code Status on File) Date Activated Date Inactivated Comments 01/28/2019 2:54 PM 01/29/2019 3:43 PM * Full Code Date Activated Date Inactivated Comments 01/28/2019 2:54 PM 01/28/2019 2:54 PM * Full Code Date Activated Date Inactivated Comments 01/27/2019 7:47 AM 01/28/2019 2:53 PM Care Teams Full Stack Java Developer Relationship Specialty Start Date End Date Latrice Calvillo MD [address] [place] [address] PCP - General 08/06/17 Lacy Enamorado MD [address] [place] [address] Consulting Physician Gastroenterology 01/29/19
--- OUTSIDE RECORDS SUMMARY | 2025-03-14 02:11 | XMS_ITS | Clinical Summary ---
Author Organization [facility] Address [address] [place] [address] Care Team Providers Care Folder Gluer Operator Name Role Phone Latrice Calvillo MD Primary Care Provider Lacy Enamorado MD Unavailable [phone] Allergies Active Allergy Reactions Criticality Noted Date Comments Latex Medications levothyroxine sodium (TIROSINT) 50 mcg capsule Take 1 capsule (50 mcg total) by mouth speech therapist early intervention before breakfast Active famotidine (PEPCID) 20 mg [...] 10/09/2019 Assessment & Plan (10/09/2019 4:07 PM PUBLIC INFORMATION COORDINATOR): Acute episode clinically resolved. Will stop Reglan at this time. Will stop Compazine. Maintain low-fat low-calorie diet. Call for follow-up if symptoms continued a recurred. Class 3 severe obesity in adult 01/29/2019 Assessment & Plan (10/09/2019 4:08 PM PUBLIC INFORMATION COORDINATOR): Discussed with the patient low calorie diet [...] (01/27/2019): Added automatically from request for surgery [id number] Assessment & Plan (01/29/2019 10:25 AM CDT): [...] on file Legal Sex Female 5:53 PM PUBLIC INFORMATION COORDINATOR Gender Identity Not on file Sexual Orientation [...] 160 cm (5' 3) 08/20/2020 10:25 AM PUBLIC INFORMATION COORDINATOR Body Mass Index 44.29 08/20/2020 10:25 AM PUBLIC INFORMATION COORDINATOR Plan of Treatment Health Maintenance Due Date [...] unspecified quadrant EGFR STAT 09/22/2019 4:00 AM PUBLIC INFORMATION COORDINATOR HEMOGLOBIN A1C Routine 01/29/2019 11:23 AM CDT [...] nal Result * eGFR (09/22/2019 4:00 AM PUBLIC INFORMATION COORDINATOR) eGFR 71 mL/min/1.7 3 m2 [facility] ([place]) Comment: Interpretive Data Reference Interval Normal >/= 90 mL/min/1.73m2 Mildly decreased* 60 - 89 mL/min/1.73m2 Mildly to moderately decreased 45 - 59 mL/min/1.73m2 Moderately to severely decreased 30 - 44 mL/min/1.73m2 Severely decreased 15 - 29 mL/min/1.73m2 Kidney Failure < 15 mL/min/1.73m2 *Relative to young adult level If -Niuean multiply value by 1.16. Estimated glomerular filtration [...] 2016. Blood specimen (specimen) 09/22/2019 4:00 AM PUBLIC INFORMATION COORDINATOR 09/22/2019 4:20 AM PUBLIC INFORMATION COORDINATOR Rajeev Barger MD LAB BLOOD ORDERABLES Final R esult [facility] 1 [facility] Department [place] [address] * Hemoglobin A1c (01/29/2019 11:23 AM CDT) Hgb A1C 4.9 4.0 - 5.6 % [facility] ([place]) Estimated Average Glucose 94 mg/dL [facility] ([place]) Comment: The ADA recommends reporting an estimated Average Glucose (eAG) with all Hemoglobin A1c results using the equation derived from a study of 507 normal and diabetic adults. Minority populations were underrepresented and children were not included. (Diabetes Care 31:8712-3353, 2008). The eAG is not equivalent to a fasting glucose. Blood specimen (specimen) 01/29/2019 11:23 AM CDT 01/29/2019 11:39 AM CDT Narrative [facility] ([place]) - 01/29/2019 12:16 PM CDT Mara Mobley MD LAB BLOOD ORDERABLES Final Re sult [facility] ([place]) 1 [facility] Department [place] [address] from Last 3 Months or Most Recently Relevant to Health Maintenance Insurance [facility] HMO/PPO Address: [place] [address] [facility] HMO/PPO Address: [address] [address] [place] [address] [facility] HMO/PPO Address: [address] [place] [address] Advance Directives For more information, please contact: [phone] * Full Code (Latest Code Status on File) Date Activated Date Inactivated Comments 01/28/2019 2:54 PM 01/29/2019 3:43 PM * Full Code Date Activated Date Inactivated Comments 01/28/2019 2:54 PM 01/28/2019 2:54 PM * Full Code Date Activated Date Inactivated Comments 01/27/2019 7:47 AM 01/28/2019 2:53 PM Care Teams Folder Gluer Operator Relationship Specialty Start Date End Date Latrice Calvillo MD [address] [place] [address] PCP - General 08/06/17 Lacy Enamorado MD [address] [place] [address] Consulting Physician Gastroenterology 01/29/19
== END 2025-03-14 01:56 | disposition left against medical advice (07) ==
LOC: ANHED 02:10
PROVIDERS: PCP Family Medicine
DX: Z53.21 Procedure and treatment not carried out due to patient leaving prior to being seen by health care provider (principal)
CPT/HCPCS: 99199

== ENCOUNTER 2025-04-24 02:04 | Day surgery (SDC) | payer OTHER, SELFPAY ==
[2025-04-16 14:41] VITALS: BMI 44.1
--- OUTSIDE RECORDS SUMMARY | 2025-04-24 02:07 | XMS_ITS | Clinical Summary ---
Author Organization [facility] [email or web address] Address [address] [place] [address] Care Team Providers Care Gauge And Weigh Machine Adjuster Name Role Phone Unavailable Primary Care Provider Unavailabl e Source Comments [facility] [email or web address],non-owned Affiliates and Associated Physician Practices is amultiple site organization consisting of ambulatory clinics and hospital sitesin [place], [place], [place] and [place]. This disclosure is being madepursuant to the Care Everywhere program and may not contain all information available regarding this patient. 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
--- OUTSIDE RECORDS SUMMARY | 2025-04-24 02:07 | XMS_ITS | Clinical Summary ---
Author Organization [facility] Address [address] [place] [address] Care Team Providers Care Frame Straightener Name Role Phone Latrice Calvillo MD Primary Care Provider Lacy Enamorado MD Unavailable [phone] Allergies Active Allergy Reactions Criticality Noted Date Comments Latex Medications levothyroxine sodium (TIROSINT) 50 mcg capsule Take 1 capsule (50 mcg total) by mouth food and beverage coordinator before breakfast Active famotidine (PEPCID) 20 mg [...] 10/09/2019 Assessment & Plan (10/09/2019 4:07 PM SERVICE DOG TRAINER): Acute episode clinically resolved. Will stop Reglan at this time. Will stop Compazine. Maintain low-fat low-calorie diet. Call for follow-up if symptoms continued a recurred. Class 3 severe obesity in adult 01/29/2019 Assessment & Plan (10/09/2019 4:08 PM SERVICE DOG TRAINER): Discussed with the patient low calorie diet [...] (01/27/2019): Added automatically from request for surgery [id number] Assessment & Plan (01/29/2019 10:25 AM CDT): [...] on file Legal Sex Female 5:53 PM SERVICE DOG TRAINER Gender Identity Not on file Sexual Orientation [...] 160 cm (5' 3) 08/20/2020 10:25 AM SERVICE DOG TRAINER Body Mass Index 44.29 08/20/2020 10:25 AM SERVICE DOG TRAINER Plan of Treatment Health Maintenance Due Date [...] unspecified quadrant EGFR STAT 09/22/2019 4:00 AM SERVICE DOG TRAINER HEMOGLOBIN A1C Routine 01/29/2019 11:23 AM CDT [...] nal Result * eGFR (09/22/2019 4:00 AM SERVICE DOG TRAINER) eGFR 71 mL/min/1.7 3 m2 [facility]) Comment: Interpretive Data Reference Interval Normal >/= 90 mL/min/1.73m2 Mildly decreased* 60 - 89 mL/min/1.73m2 Mildly to moderately decreased 45 - 59 mL/min/1.73m2 Moderately to severely decreased 30 - 44 mL/min/1.73m2 Severely decreased 15 - 29 mL/min/1.73m2 Kidney Failure < 15 mL/min/1.73m2 *Relative to young adult level If -Tanz[place] multiply value by 1.16. Estimated glomerular filtration [...] 2016. Blood specimen (specimen) 09/22/2019 4:00 AM SERVICE DOG TRAINER 09/22/2019 4:20 AM SERVICE DOG TRAINER Rajeev Barger MD LAB BLOOD ORDERABLES Final R esult [facility] ([place]) 1 [facility] Department [place] [address] * Hemoglobin A1c (01/29/2019 11:23 AM CDT) Hgb A1C 4.9 4.0 - 5.6 % [facility] ([place]) Estimated Average Glucose 94 mg/dL [facility] ([place]) Comment: The ADA recommends reporting an estimated Average Glucose (eAG) with all Hemoglobin A1c results using the equation derived from a study of 507 normal and diabetic adults. Minority populations were underrepresented and children were not included. (Diabetes Care 31:7367-4036, 2008). The eAG is not equivalent to a fasting glucose. Blood specimen (specimen) 01/29/2019 11:23 AM CDT 01/29/2019 11:39 AM CDT Narrative [facility]) - 01/29/2019 12:16 PM CDT Mara Mobley MD LAB BLOOD ORDERABLES Final Re sult [facility] ([place]) 1 [facility] Department [place] [address] from Last 3 Months or Most Recently Relevant to Health Maintenance Insurance Advance Directives For more information, please contact: [phone] * Full Code (Latest Code Status on File) Date Activated Date Inactivated Comments 01/28/2019 2:54 PM 01/29/2019 3:43 PM * Full Code Date Activated Date Inactivated Comments 01/28/2019 2:54 PM 01/28/2019 2:54 PM * Full Code Date Activated Date Inactivated Comments 01/27/2019 7:47 AM 01/28/2019 2:53 PM Care Teams Frame Straightener Relationship Specialty Start Date End Date Latrice Calvillo MD [address] [place] [address] [place] [id number] PCP - General 08/06/17 Lacy Enamorado MD [address] [place] [address] [place] [id number] Consulting Physician Gastroenterology 01/29/19
[2025-04-24 11:48] VITALS: BP 133/73; PULSE 66; RESP 18; TEMP 36.3; O2SAT 99
--- NOTE | 2025-04-24 12:16 | P.PNAN_ITS ---
Anes - Initial Pre Proc Eval Procedure: Operation Date: 04/24/25 13:00 Proposed Procedures p Esophagogastroduodenoscopy - Glenn Willingham MD Date/Time: 04/24/25 12:16 Surgeon: Glenn Willingham MD Pre Op Diagnosis: Epigastric pain, Abdominal distension (gaseous) Patient Data Age: 39 Gender: F Height: 1.6 m Weight: 113.8 kg Last Vital Signs Temp 36.3 C L 04/24/25 11:48 Pulse 66 04/24/25 11:48 Resp 18 04/24/25 11:48 BP 133/73 04/24/25 11:48 Pulse Ox 99 04/24/25 11:48 O2 Del Method Room Air 04/24/25 11:48 Allergies Allergy/AdvReac Type Severity Reaction Status Date / Time latex Allergy Unknown rash Verified 04/16/25 14:33 Home Medications ?Medication ?Instructions ?Recorded ?Confirmed ?Type levothyroxine 175 mcg tablet 175 mcg PO DAILY #30 tabs 01/21/24 04/24/25 Rx levonorgestrel (Mirena) 1 device intrauterine ONCE 0 09/11/24 04/16/25 History sertraline 50 mg tablet See Rx Instructions .Route 0 02/26/25 04/24/25 Rx .COMPLEX #90 tabs pantoprazole 40 mg tablet,delayed 40 mg PO QAM #90 tab s 02/27/25 04/24/25 Rx release phentermine 37.5 mg capsule 37.5 mg PO DAILY #30 caps 04/13/25 04/24/25 Rx norgestimate 0.25 mg-ethinyl 1 tablet PO DAILY #28 tab s 04/14/25 04/24/25 Rx estradiol 0.035 mg tablet (Sprintec (28)) Patient hx anesthesia problems: none Family hx anesthesia problems: none Results Review: All pre-operative results and documents have been reviewed as part of the pre- operative evaluation. [facility] Past Medical History Medical History (Updated 04/23/25 @ 15:54 by Leo Farias DO) Asthma Encounter for initial insertion of intrauterine contraceptive device Suppression of menses Palpitations Whiplash Vitamin D deficiency Tuberculosis screening Tobacco use RUQ abdominal pain Nausea Hypothyroidism, unspecified Chronic cholecystitis B12 deficiency Anxiety Acute non-recurrent maxillary sinusitis Acute non-recurrent frontal sinusitis Abnormal findings on imaging of biliary tract Abdominal pain in female Screening for hyperlipidemia Allergic reaction to tattoo ink Hypothyroidism (acquired) Aspiration into airway Depression with anxiety Migraines Gastro-esophageal reflux disease without esophagitis Adult hypothyroidism Surgical History Surgical History History of cholecystectomy Family History Family History Mother Asthma Family history of thyroid disease Depression Thyroid disorder Sibling Asthma Grandparent Diabetes mellitus Other Asthma Grandparent Diabetes mellitus Heart disease Social History Social History Social History: Smoking packs per day: 0.5 Smoking cigarettes per day: 10.0 Years smoked: 12 Smoking pack-years: 6.00 Smoking status: Former smoker Tobacco type: cigarettes Second hand tobacco smoke exposure: No Smoking end date: 08/20/12 Alcohol intake: never Substance use: never Substance use type: does not use Do You Feel Safe in your Home?: Yes Lack of Transportation: No Lack of Food: Never True Current Housing: I Have Housing Concerned About Future Housing: No Difficulty Paying Gas/Electric Bills: No Difficulty Paying for Meds: No Currently Unemployed: No Education: Associate Degree Difficulty w/ Childcare or Family Care: No Living arrangements: with family Additional living arrangements comments: Occupation/Education: occupation Additional occupation/education comments: Dental Hygienist Gender identity (if verbalized by the patient): Female Sexual Orientation (if Verbalized by the Patient): Straight or Heterosexual Spiritual care concerns: No Anes - Eval Final PreProcedure Day of Procedure 04/24/25 12:16 Patient weight: morbidly obese Heart: regular rate and rhythm Lungs: clear to auscultation Airway: Mallampati scale class II Neurological: alert and oriented Last oral intake: >/= 8 hours ASA classification: III Emergent: no Anesthetic plan: proceed Anesthesia type and monitoring: general GIVS and standard monitoring Results Review: All pre-operative results and documents have been reviewed as part of the pre- operative evaluation. Informed Consent: The patient's anesthetic plan and its attendant risks and benefits were discussed with the patient/family/POA. Questions were solicited and answers provided to the satisfaction of the patient/family/POA.
[2025-04-24] MEDS: LACTATED RINGERS 1,000 ML 150 ML IV CONT (12:38)
--- NOTE | 2025-04-24 13:09 | P.HP_ITS ---
H&P: HPI History of Present Illness Date/Time: 04/24/25 13:09 Chief Complaint: Nausea vomiting-abdominal pain Narrative: the patient has been having attacks of abdominal pain, localized in the epigastrium, associated with protracted vomiting/ dry heaves and nausea that lasts for approximately 24 hours and then subside spontaneously being completely asymptomatic between episodes. This has been occurring since 2017, however during her last year's she did not have any attacks, including during the 1st trimester. She has an average of 4 attacks per year. He is referred for EGD. Review of Systems Review of Systems: All systems reviewed & are unremarkable except as noted in HPI and below PMFSH Past Medical History Medical History (Updated 04/24/25 @ 13:11 by Glenn Willingham MD) Asthma Encounter for initial insertion of intrauterine contraceptive device Suppression of menses Palpitations Whiplash Vitamin D deficiency Tuberculosis screening Tobacco use RUQ abdominal pain Nausea Hypothyroidism, unspecified Chronic cholecystitis B12 deficiency Anxiety Acute non-recurrent maxillary sinusitis Acute non-recurrent frontal sinusitis Abnormal findings on imaging of biliary tract Abdominal pain in female Screening for hyperlipidemia Allergic reaction to tattoo ink Hypothyroidism (acquired) Aspiration into airway Depression with anxiety Migraines Gastro-esophageal reflux disease without esophagitis Adult hypothyroidism Surgical History Surgical History History of cholecystectomy Family History Family History Mother Asthma Family history of thyroid disease Depression Thyroid disorder Sibling Asthma Grandparent Diabetes mellitus Other Asthma Grandparent Diabetes mellitus Heart disease Social History Social History Social History: Smoking packs per day: 0.5 Smoking cigarettes per day: 10.0 Years smoked: 12 Smoking pack-years: 6.00 Smoking status: Former smoker Tobacco type: cigarettes Second hand tobacco smoke exposure: No Smoking end date: 08/20/12 Alcohol intake: never Substance use: never Substance use type: does not use Do You Feel Safe in your Home?: Yes Lack of Transportation: No Lack of Food: Never True Current Housing: I Have Housing Concerned About Future Housing: No Difficulty Paying Gas/Electric Bills: No Difficulty Paying for Meds: No Currently Unemployed: No Education: Associate Degree Difficulty w/ Childcare or Family Care: No Living arrangements: with family Additional living arrangements comments: Occupation/Education: occupation Additional occupation/education comments: Dental Hygienist Gender identity (if verbalized by the patient): Female Sexual Orientation (if Verbalized by the Patient): Straight or Heterosexual Spiritual care concerns: No Meds Home Medications and Allergies Home Medications ?Medication ?Instructions ?Recorded ?Confirmed ?Type levothyroxine 175 mcg tablet 175 mcg PO DAILY #30 tabs 01/21/24 04/24/25 Rx levonorgestrel (Mirena) 1 device intrauterine ONCE 0 09/11/24 04/16/25 History sertraline 50 mg tablet See Rx Instructions .Route 0 02/26/25 04/24/25 Rx .COMPLEX #90 tabs pantoprazole 40 mg tablet,delayed 40 mg PO QAM #90 tab s 02/27/25 04/24/25 Rx release phentermine 37.5 mg capsule 37.5 mg PO DAILY #30 caps 04/13/25 04/24/25 Rx norgestimate 0.25 mg-ethinyl 1 tablet PO DAILY #28 tab s 04/14/25 04/24/25 Rx estradiol 0.035 mg tablet (Sprintec (28)) Allergies Allergy/AdvReac Type Severity Reaction Status Date / Time latex Allergy Unknown rash Verified 04/16/25 14:33 Vital Signs Vital Signs - 24 hr 04/24/25 11:48 Temperature 97.3 F L Pulse Rate 66 Respiratory Rate 18 Blood Pressure 133/73 Pulse Oximetry 99 Oxygen Delivery Room Air Exam Const: General: cooperative and healthy appearing Resp: Effort & Inspection: normal respiratory effort and able to speak in complete sentences Auscultation: clear to auscultation bilaterally Cardio: Rate: regular rate Rhythm: regular rhythm GI: Inspection: normal to inspection GI Palp: No No hepatosplenomegaly present Auscultation: normal bowel sounds Rectal Exam: deferred Skin: General skin exam: normal color Psych: Appearance: grossly normal Mental Status: mental status grossly normal Assessment and Plan Assessment and plan (1) Nausea and vomiting: Code(s): R11.2 - Nausea with vomiting, unspecified Status: Acute Assessment and Plan: clinical picture most compatible with cyclic vomiting syndrome. Will perform EGD as scheduled to rule out visible pathology such as severe gastritis or peptic ulcer disease.
--- NOTE | 2025-04-24 13:22 | S_PTH ---
PATIENT: Tremayne Barton LOC: [facility] #:[id number] AGE/SX: 39/F ROOM: RE04/24/[address]: Glenn Willingham MD : 1985 BED: DIS: 04/24/2025 SPEC #: [id number] RECD: 04/24/25 14:20 STATUS: PAM REYvon #: [id number] JANICE: 04/24/25 13:[address]: Glenn Willingham DEPT: [facility] Surgical RECD BY: Khadra Calvert ENTERED: 04/24/25 14:20 SP TYPE: Surgical OTHR DR: Rafael Arango MD Tissues: A - Gastric Biopsy B - Gastric Biopsy Procedures: Hematoxylin and Eosin Stain Gross and Microscopic Level 4
[2025-04-24 13:25] LABS: BEDSIDEPREGUCG Negative (Negative)
[2025-04-24 13:27] VITALS: BP 103/58; PULSE 64; RESP 19; O2SAT 98
[2025-04-24 13:37] VITALS: BP 111/65; PULSE 76; RESP 19; O2SAT 98
[2025-04-24 13:47] VITALS: BP 113/63; PULSE 60; RESP 17; O2SAT 98
== END 2025-04-24 14:00 | disposition home or self-care (01) ==
PROVIDERS: PCP Family Medicine; Visit Provider Internal Medicine Gastroenterology
PROC: 0DJ08ZZ Inspection of Upper Intestinal Tract, Via Natural or Artificial Opening Endoscopic (ICD-10-PCS; CPT 43239; principal; 2025-04-24 13:00)
DX: K29.30 Chronic superficial gastritis without bleeding (principal); K31.7 Polyp of stomach and duodenum; R10.13 Epigastric pain; J45.909 Unspecified asthma, uncomplicated; E55.9 Vitamin D deficiency, unspecified; E03.9 Hypothyroidism, unspecified; E53.8 Deficiency of other specified B group vitamins; F41.8 Other specified anxiety disorders; K21.9 Gastro-esophageal reflux disease without esophagitis; Z87.891 Personal history of nicotine dependence
CPT/HCPCS: 43239; 88305; J2003; J2704; J7120